=== PATIENT | male | born 1950 | race Caucasian/White ===

== ENCOUNTER 2020-03-04 14:50 | Outpatient (RCR) | payer MEDICARE, OTHER, SELFPAY | END 2020-03-04 23:59 | disposition home or self-care (01) | LOC: ANHAUDIO 14:50 | DX: Z46.1 Encounter for fitting and adjustment of hearing aid (principal) | CPT/HCPCS: 92593 ==

== ENCOUNTER 2020-06-17 12:52 | Outpatient (CLI) | payer MEDICARE, OTHER, SELFPAY | END 2020-06-17 12:53 | disposition home or self-care (01) | LOC: ANHAUDIO 12:53 | PROVIDERS: Visit Provider Otolaryngology | DX: H90.3 Sensorineural hearing loss, bilateral (principal) | CPT/HCPCS: 92557; 92567 ==

== ENCOUNTER 2020-07-06 09:25 | Outpatient (RCR) | payer SELFPAY | END 2020-07-06 23:59 | disposition home or self-care (01) | LOC: ANHAUDIO 09:25 | DX: Z46.1 Encounter for fitting and adjustment of hearing aid (principal) | CPT/HCPCS: V5261 ==

== ENCOUNTER 2020-10-20 09:29 | Outpatient (RCR) | payer SELFPAY | END 2020-10-20 23:59 | disposition home or self-care (01) | LOC: ANHAUDIO 09:29 | DX: Z46.1 Encounter for fitting and adjustment of hearing aid (principal) | CPT/HCPCS: 99199 ==

== ENCOUNTER 2022-06-20 17:01 | Emergency (ER) | payer MEDICARE, OTHER, SELFPAY | END 2022-06-20 17:10 | disposition left against medical advice (07) | DX: Z53.21 Procedure and treatment not carried out due to patient leaving prior to being seen by health care provider (principal) | CPT/HCPCS: 99199 ==

== ENCOUNTER 2025-04-06 14:05 | Inpatient (IN) | payer MEDICARE, SELFPAY ==
[2025-04-06] VITALS (12 sets, daily range): BP systolic 116–150; BP diastolic 68–99; PULSE 70–99; RESP 16–22; TEMP 36.5–36.7; O2SAT 97–99; BMI 30.7
--- NOTE | ~2025-04-06 | XR_ITS ---
EXAMINATION: XR chest 2V, 04/06/2025 14:45 CDT HISTORY: cp, hx of COPD COMPARISON: No comparisons available. Technique: 2 views obtained. Findings: The lungs are clear, no effusion. No pneumothorax. Heart is normal size. Mediastinal and hilar contours are within normal limits. Poststernotomy Impression: No acute cardiopulmonary abnormality. Reviewed, dictated and finalized at location P. Impression: No acute cardiopulmonary abnormality.
--- NOTE | 2025-04-06 14:10 | ECG_ITS ---
Test Date: 2025-04-06 14:11:42 Measurements Intervals [place] Rate: 98 P: 0 [place]: 0 QRS: -43 QRSD: 101 T: 45 QT: 342 QTc: 438 Interpretive Statements ATRIAL FLUTTER/TACHYCARDIA WITH NORMAL VENTRICULAR RESPONSE LEFT AXIS DEVIATION PATTERN CONSISTENT WITH PULMONARY DISEASE INCOMPLETE RIGHT BUNDLE BRANCH BLOCK BASELINE ARTIFACT- I, II, AVR, AVL, AVF ABNORMAL ECG No previous ECG available for comparison Electronically Signed On 04-06-2025 16:47:47 CDT by Juanito Roa D.O.
[2025-04-06 14:24] LABS: Hematocrit 47.2 % (42.0-52.0); Hemoglobin 14.7 g/dL (14.0-18.0); Immature Granulocyte Percent A 0.4 % (0-0.5); Lymphocytes Absolute Auto 1.25 K/mm3 (0.9-3.2); Mean Corpuscular HGB Conc 31.1 g/dl (32-36); Mean Corpuscular Hemoglobin 28.1 pg (26-34); Mean Corpuscular Volume 90.2 fl (80-100); Nucleated Red Blood Cells Absolute Auto 0.000 K/mm3 (0.0-0.012); Nucleated Red Blood Cells Perc 0.0 % (0.0-0.2); Platelet Count Result 195 k/mm3 (150-375); Red Blood Count 5.23 M/mm3 (4.6-6.20); White Blood Count 8.5 K/mm3 (4.5-10.0)
[2025-04-06 14:38] LABS: INR 1.1; Prothrombin Time 14.7 Seconds (11.1-14.7)
[2025-04-06 14:39] LABS: Partial Thromboplastin Time 34.8 Seconds (22.3-36.8)
[2025-04-06 14:41] LABS: Alanine Aminotransferase 40 U/L (6-50); Albumin Level 4.0 g/dL (3.5-5.1); Alkaline Phosphatase 130 U/L (38-126); Anion Gap 7 mmol/L (4-12); Aspartate Amino Transferase 36 U/L (17-59); Bilirubin,Total 0.6 mg/dL (0.2-1.3); Blood Urea Nitrogen 19 mg/dL (9-20); Calcium 9.3 mg/dL (8.4-10.2); Carbon Dioxide 29 mmol/L (22-30); Chloride 102 mmol/L (98-107); Estimated CRCL calculation 67 ml/min; Estimated Glomerular Filt Rate > 60; Glucose 181 mg/dL (65-110); Lipase 41 U/L (23-300); Potassium 4.6 mmol/L (3.4-5.0); Sodium 138 mmol/L (137-145); Total Protein 6.9 g/dL (6.3-8.2)
[2025-04-06 14:48] LABS: Troponin I 0.012 ng/mL (0.000-0.034)
--- NOTE | 2025-04-06 17:32 | ED.GENADULT ---
HPI - General Adult General Chief complaint: Chest Pain Stated complaint: cp Time Seen by Provider: 04/06/25 15:23 History of Present Illness HPI narrative: Patient 74-year-old gentleman who presents emergency department chief complaint of chest pain. Patient reports he had a bypass 20 years ago and reports that today started having pain over his middle portion of his chest radiating to his left shoulder the patient reports nausea with this patient reports he took 4 baby aspirin but vomited immediately afterwards EMS was called and was transported the emergency department the patient states his pain has resolved at this point Related Data Home Medications ?Medication ?Instructions ?Recorded ?Confirmed ?Last Taken ?Type aspirin 81 mg tablet,delayed 81 mg PO DAILY 06/10/20 Unknown History release benazepril 10 mg tablet 10 mg PO DAILY 06/10/20 Unknown History metformin 500 mg tablet 1,000 mg PO BID 06/10/20 Unknown History metoprolol tartrate 50 mg tablet 50 mg PO Q12H 06/10/20 Unknown History rosuvastatin 40 mg tablet 40 mg PO DAILY 06/10/20 Unknown History Allergies Allergy/AdvReac Type Severity Reaction Status Date / Time No Known Allergies Allergy Verified 06/10/20 09:27 Review of Systems Review of Systems: A 10 system review of systems was completed on the patient and is negative except for what is stated in the HPI. Nursing and ancillary documentation was reviewed. [facility] Social History Social History Smoking status: Never smoker Alcohol intake: never Substance use: never Exam Narrative: GENERAL: Well-appearing, well-nourished, and in no acute distress. HEAD: Normocephalic, atraumatic. EYES: PERRLA and EOMI. ENT: Nares clear, no rhinorrhea or epistaxis. Mucous membranes moist. NECK: Supple. CHEST: Clear to auscultation. No respiratory distress. HEART: Regular rate and rhythm. No murmur heard. Normal peripheral pulses. ABDOMEN: Soft, nontender, nondistended, normal active bowel sounds. EXTREMITIES: Normal range of motion. No edema. SKIN: Warm, dry, no rash. NEURO: No focal deficits. Alert and oriented x3. PSYCH: Normal mood and affect. Course Vital Signs Vital signs: Vital Signs Pulse Rate 93 04/06/25 14:08 Respiratory Rate 22 H 04/06/25 14:08 Blood Pressure 150/75 H 04/06/25 14:08 Pulse Oximetry 99 04/06/25 14:08 Oxygen Flow Rate 3 04/06/25 14:08 Temperature 36.7 C 04/06/25 14:24 Pulse Rate 89 04/06/25 17:59 Respiratory Rate 18 04/06/25 17:59 Blood Pressure 116/68 04/06/25 17:59 Pulse Oximetry 99 04/06/25 17:59 Oxygen Delivery Nasal Cannula 04/06/25 14:23 Oxygen Flow Rate 3 04/06/25 14:23 Medical Decision Making MDM Narrative Medical decision making narrative: Differential diagnosis includes ACS, atypical chest pain, pancreatitis, pneumothorax, Chest x-ray showed no focal infiltrate or pneumothorax or wide mediastinum Initial troponin was negative EKG showed no acute ischemic changes 3 hour repeat troponin increased Vital Signs Vital Signs: Vital Signs Pulse Rate 93 04/06/25 14:08 Respiratory Rate 22 H 04/06/25 14:08 Blood Pressure 150/75 H 04/06/25 14:08 Pulse Oximetry 99 04/06/25 14:08 Oxygen Flow Rate 3 04/06/25 14:08 Temperature 36.7 C 04/06/25 14:24 Pulse Rate 89 04/06/25 17:59 Respiratory Rate 18 04/06/25 17:59 Blood Pressure 116/68 04/06/25 17:59 Pulse Oximetry 99 04/06/25 17:59 Oxygen Delivery Nasal Cannula 04/06/25 14:23 Oxygen Flow Rate 3 04/06/25 14:23 Lab Data 04/06/25 14:16 04/06/25 14:16 Labs: Lab Results 04/06/25 04/06/25 04/06/25 Range/Units 14:13 14:16 17:41 WBC 8.5 (4.5-10.0) K/mm3 RBC 5.23 (4.6-6.20) M/mm3 Hgb 14.7 (14.0-18.0) g/dL Hct 47.2 (42.0-52.0) % MCV 90.2 (80-100) fl MCH 28.1 (26-34) pg MCHC 31.1 L (32-36) g/dl RDW 15.5 H (11.5-14.5) % Plt Count 195 (150-375) k/mm3 MPV 9.3 (7.4-10.4) fl Immature Gran % (Auto) 0.4 (0-0.5) % Neut % (Auto) 73.2 H (45.5-73.1) % Lymph % (Auto) 14.7 L (18.3-44.2) % [place] % (Auto) 9.5 H (2.6-8.5) % Eos % (Auto) 1.5 (0-4.4) % Baso % (Auto) 0.7 (0.2-1.2) % Lymph # (Auto) 1.25 (0.9-3.2) K/mm3 [place] # (Auto) 0.8 H (0.1-0.6) K/mm3 Eos # (Auto) 0.1 (0-0.3) K/mm3 Baso # (Auto) 0.1 (0.0-0.1) K/mm3 Abs Immat Gran (auto) 0.03 (0.00-0.031) K/mm3 Absolute Neuts (auto) 6.2 (1.3-6.7) K/mm3 Absolute Nucleated RBC 0.000 (0.0-0.012) K/mm3 Nucleated RBC % 0.0 (0.0-0.2) % PT 14.7 (11.1-14.7) Seconds INR 1.1 APTT 34.8 (22.3-36.8) Seconds Sodium 138 (137-145) mmol/L Potassium 4.6 (3.4-5.0) mmol/L Chloride 102 (98-107) mmol/L Carbon Dioxide 29 (22-30) mmol/L Anion Gap 7 (4-12) mmol/L BUN 19 (9-20) mg/dL Creatinine 0.88 (0.7-1.3) mg/dL Estim Creat Clear Calc 67 ml/min Estimated GFR > 60 (59 - ) Glucose 181 H (65-110) mg/dL POC Capillary Glucose 203 H (65-105) mg/dl Calcium 9.3 (8.4-10.2) mg/dL Total Bilirubin 0.6 (0.2-1.3) mg/dL AST 36 (17-59) U/L ALT 40 (6-50) U/L Alkaline Phosphatase 130 H (38-126) U/L Troponin I 0.012 Pending (0.000-0.034) ng/mL Total Protein 6.9 (6.3-8.2) g/dL Albumin 4.0 (3.5-5.1) g/dL Lipase 41 (23-300) U/L 04/06/25 Range/Units 17:56 WBC (4.5-10.0) K/mm3 RBC (4.6-6.20) M/mm3 Hgb (14.0-18.0) g/dL Hct (42.0-52.0) % MCV (80-100) fl MCH (26-34) pg MCHC (32-36) g/dl RDW (11.5-14.5) % Plt Count (150-375) k/mm3 MPV (7.4-10.4) fl Immature Gran % (Auto) (0-0.5) % Neut % (Auto) (45.5-73.1) % Lymph % (Auto) (18.3-44.2) % [place] % (Auto) (2.6-8.5) % Eos % (Auto) (0-4.4) % Baso % (Auto) (0.2-1.2) % Lymph # (Auto) (0.9-3.2) K/mm3 [place] # (Auto) (0.1-0.6) K/mm3 Eos # (Auto) (0-0.3) K/mm3 Baso # (Auto) (0.0-0.1) K/mm3 Abs Immat Gran (auto) (0.00-0.031) K/mm3 Absolute Neuts (auto) (1.3-6.7) K/mm3 Absolute Nucleated RBC (0.0-0.012) K/mm3 Nucleated RBC % (0.0-0.2) % PT (11.1-14.7) Seconds INR APTT (22.3-36.8) Seconds Sodium (137-145) mmol/L Potassium (3.4-5.0) mmol/L Chloride (98-107) mmol/L Carbon Dioxide (22-30) mmol/L Anion Gap (4-12) mmol/L BUN (9-20) mg/dL Creatinine (0.7-1.3) mg/dL Estim Creat Clear Calc ml/min Estimated GFR (59 - ) Glucose (65-110) mg/dL POC Capillary Glucose 65 (65-105) mg/dl Calcium (8.4-10.2) mg/dL Total Bilirubin (0.2-1.3) mg/dL AST (17-59) U/L ALT (6-50) U/L Alkaline Phosphatase (38-126) U/L Troponin I (0.000-0.034) ng/mL Total Protein (6.3-8.2) g/dL Albumin (3.5-5.1) g/dL Lipase (23-300) U/L Discharge Plan Discharge Clinical Impression: Chest pain, Elevated troponin Patient Disposition: Still a Patient Condition: Stable Patient Language: Slovenian Prescriptions: No Action metformin 500 mg tablet 1,000 mg PO BID metoprolol tartrate 50 mg tablet 50 mg PO Q12H rosuvastatin 40 mg tablet 40 mg PO DAILY benazepril 10 mg tablet 10 mg PO DAILY aspirin 81 mg tablet,delayed release (DR/EC) 81 mg PO DAILY Follow-up/Referrals: UNKNOWN,DOCTOR [Primary Care Provider] Time of Disposition: 18:17
--- NOTE | 2025-04-06 17:42 | ECG_ITS ---
Test Date: 2025-04-06 17:49:32 Measurements Intervals [place] Rate: 80 P: -20 [place]: 220 QRS: 0 QRSD: 118 T: 30 QT: 360 QTc: 415 Interpretive Statements ATRIAL FLUTTER/TACHYCARDIA WITH NORMAL VENTRICULAR RESPONSE INCOMPLETE RIGHT BUNDLE BRANCH BLOCK PATTERN CONSISTENT WITH PULMONARY DISEASE ABNORMAL ECG Compared to ECG 04/06/2025 14:11:42 NO SIGNIFICANT CHANGE Electronically Signed On 04-06-2025 19:59:02 CDT by Juanito Roa D.O.
--- NOTE | 2025-04-06 18:01 | PC.NURSE ---
Juice pb and crackers provided r/t bs 65
[2025-04-06 18:13] LABS: Troponin I 0.084 ng/mL (0.000-0.034)
--- NOTE | 2025-04-06 18:18 | PM.IMHP ---
H&P: HPI History of Present Illness Date/Time: 04/06/25 18:18 Chief Complaint: Chest pain Narrative: 74 year old male with a PMH of DMII, DORENE wtih cpap, Alz dementia, COPD, HTN, CABG x4 presented to the ED on 04/06/25 with complaints of sudden crushing chest pain located over the middle of his chest and radiating to his left shoulder. Family was instructed to give 4 baby aspirin but patient immediately vomited after administration. Symptoms had resolved before arrival to the ED. patient is A&O x2 on my assessment. Family mentions the patient complained of shortness of breath as well. Patient does have history of CABG x4. ED course: Labs reviewed elevated glucose, alk-phos 130, initial troponin 0.012 and 3 hour troponin 0.084. EKG with no evidence ischemic changes Chest x-ray with no acute cardiopulmonary abnormality Review of Systems Review of Systems: All systems reviewed & are unremarkable except as noted in HPI and below PMFSH Past Medical History Medical History (Updated 04/07/25 @ 01:11 by Yesenia Ronquillo APRN) COPD (chronic obstructive pulmonary disease) DMII (diabetes mellitus, type 2) DORENE (obstructive sleep apnea) Alzheimer's dementia Family History Family History Mother Alzheimer disease Father Alzheimer disease Diabetes mellitus Sibling History of kidney problems Social History Social History Smoking status: Never smoker Alcohol intake: never Substance use: never Meds Home Medications and Allergies Home Medications ?Medication ?Instructions ?Recorded ?Confirmed ?Type aspirin 81 mg tablet,delayed 81 mg PO DAILY 06/10/20 04/06/25 History release rosuvastatin 40 mg tablet 40 mg PO DAILY 06/10/20 04/06/25 History albuterol sulfate 0.63 mg/3 mL 0.63 mg inhalation Q6H 04/06/25 04/06/25 History solution for nebulization albuterol sulfate 90 mcg/actuation 2 inh inhalation Q4-6H PRN 04/06/25 04/06/25 History aerosol inhaler (Ventolin HFA) shortness of breath or wheezing apixaban 5 mg tablet (Eliquis) 5 mg PO Q12H 04/06/25 04/06/25 History benazepril 5 mg tablet 5 mg PO DAILY 04/06/25 04/06/25 History blood sugar diagnostic (FreeStyle 04/06/25 04/06/25 History Lite Strips) blood-glucose meter (FreeStyle 04/06/25 04/06/25 History Lite Meter kit) [id number] 1 drp EACH EYE DAILY PRN dry eye(s) 04/06/25 04/06/25 History 80 0.5 %-1 %-0.5 % eye drops (Refresh Optive Advanced) cholecalciferol (vitamin D3) 50 2,000 unit PO BID 04/06/25 04/06/25 History mcg (2,000 unit) capsule clindamycin HCl 300 mg capsule 600 mg PO PRN 04/06/25 04/06/25 History cyanocobalamin (vitamin B-12) 1,000 mcg subcut MONTHLY 04/06/25 04/06/25 History 1,000 mcg/mL injection solution cyclosporine 0.05 % eye drops in a 1 drp EACH EYE BID 04/06/25 04/06/25 History dropperette (Restasis) ferrous sulfate 325 mg (65 mg 325 mg PO DAILY 04/06/25 04/06/25 History iron) tablet (iron) fluticasone fur. 200 mcg-umeclid 1 inh inhalation DAILY 04/06/25 04/06/25 History 62.5 mcg-vilant 25 mcg inhalat.powder (Trelegy Ellipta) insulin NPH isoph U-100 human 100 30 unit subcut BID 04/06/25 04/06/25 History unit/mL subcutaneous suspension (Humulin N NPH U-100 Insulin (isophane susp)) insulin regular human 100 unit/mL 14 unit subcut TID 04/06/25 04/06/25 History injection solution (Humulin R Regular U-100 Insulin) insulin syringe-needle U-100 0.5 04/06/25 04/06/25 History mL 31 gauge x 5/16 (Ultra-Fine Insulin Syringe) metoprolol succinate 25 mg 25 mg PO DAILY 04/06/25 04/06/25 History tablet,extended release 24 hr multivitamin (Daily Multi-Vitamin 1 tablet PO DAILY 04/06/25 04/06/25 History tablet) tamsulosin 0.4 mg capsule 0.4 mg PO DAILY 04/06/25 04/06/25 History vit C 250 mg-vit E 90 mg-zinc 40 1 tablet PO BID 04/06/25 04/06/25 History mg-copper 1 [id number]-uqanxd capsule (PreserVision AREDS-2) Allergies Allergy/AdvReac Type Severity Reaction Status Date / Time Penicillins Allergy Unknown Rash Verified 04/06/25 20:10 Vital Signs Vital Signs - 24 hr 04/06/25 14:08 04/06/25 14:15 04/06/25 14:23 Temperature Pulse Rate 93 99 Respiratory Rate 22 H Blood Pressure 150/75 H Pulse Oximetry 99 98 Oxygen Delivery Nasal Cannula Oxygen Flow Rate 3 3 04/06/25 14:24 04/06/25 15:48 04/06/25 17:51 Temperature 98.0 F Pulse Rate 96 93 Respiratory Rate 18 18 Blood Pressure 120/70 116/68 Pulse Oximetry 97 98 99 Oxygen Delivery Oxygen Flow Rate 04/06/25 17:59 Temperature Pulse Rate 89 Respiratory Rate 18 Blood Pressure 116/68 Pulse Oximetry 99 Oxygen Delivery Oxygen Flow Rate Exam Narrative: GENERAL: non-toxic appearing, in no acute distress. HEAD: Normocephalic, atraumatic. EYES: PERRLA. Conjunctivae clear. NOSE: Normal no drainage. THROAT: Pharynx clear, no exudate. NECK: Trachea midline. No adenopathy, no masses. RESPIRATORY: Airway patent, respirations nonlabored. CTA. CARDIOVASCULAR: Regular rate and rhythm. BREASTS: Defer GASTROINTESTINAL: Abdomen is soft and nontender. No organomegaly. Bowel sounds normal in all quadrants. Obese GENITOURINARY: Defer MUSCULOSKELETAL: Moves all extremities. No gross deformities. Moves all extremities well. No calf tenderness. SKIN: Warm, dry, normal color. NEURO: A&O X2 but able to correct answers if given time or reminders. Speech clear PSYCHIATRIC: Normal interaction H&P: Results Labs Labs: Short CBC 04/06/25 Range/Units 14:16 WBC 8.5 (4.5-10.0) K/mm3 Hgb 14.7 (14.0-18.0) g/dL Hct 47.2 (42.0-52.0) % Plt Count 195 (150-375) k/mm3 [facility] 04/06/25 14:16 Sodium 138 Potassium 4.6 Chloride 102 Carbon Dioxide 29 BUN 19 Creatinine 0.88 Glucose 181 H Calcium 9.3 Cardiac Enzymes 04/06/25 04/06/25 Range/Units 14:16 17:41 Troponin I 0.012 0.084 H* D (0.000-0.034) ng/mL Liver Function 04/06/25 Range/Units 14:16 Total Bilirubin 0.6 (0.2-1.3) mg/dL AST 36 (17-59) U/L ALT 40 (6-50) U/L Alkaline Phosphatase 130 H (38-126) U/L Albumin 4.0 (3.5-5.1) g/dL Assessment and Plan Assessment and plan (1) Chest pain: Qualifiers: Chest pain type: unspecified Qualified Code(s): R07.9 - Chest pain, unspecified Code(s): R07.9 - Chest pain, unspecified Status: Acute Assessment and Plan: complaints of sudden crushing chest pain located over the middle of his chest and radiating to his left shoulder. History of CABG x4. Takes Eliquis and aspirin 81 mg. EKG with no evidence of ischemic event. Initial troponin 0.012 and increased to 0.84. Await 6hr trop -concern for NSTEMI -heparin drip per protocol started -cardiology consult -NPO at MI should cardiology want to take to director of cardiac cath lab -continue beta-scott -continue statin -sublingual nitro p.r.n. -lipid panel ordered (2) Alzheimer's dementia: Qualifiers: Alzheimer's disease onset: early onset Dementia behavioral or psychological symptom: without behavioral, psychotic, or mood disturbance or anxiety Dementia severity: unspecified severity Qualified Code(s): G30.0 - Alzheimer's disease with early onset; F02.80 - Dementia in other diseases classified elsewhere, unspecified severity, without behavioral disturbance, psychotic disturbance, mood disturbance, and anxiety Code(s): G30.9 - Alzheimer's disease, unspecified; F02.80 - Dementia in other diseases classified elsewhere, unspecified severity, without behavioral disturbance, psychotic disturbance, mood disturbance, and anxiety Status: Acute Assessment and Plan: Per family, patient unable to tolerate Aricept due to drowsiness. Patient has had no mood disturbances behavioral disturbances. -continue to monitor for symptoms of agitation -fall precautions (3) DORENE (obstructive sleep apnea): Code(s): G47.33 - Obstructive sleep apnea (adult) (pediatric) Status: Chronic Assessment and Plan: CPAP for all sleep using home settings (4) DMII (diabetes mellitus, type 2): Qualifiers: Diabetes mellitus complication status: with other specified complication Diabetes mellitus intermediate insulin use: with intermediate use Qualified Code(s): E11.69 - Type 2 diabetes mellitus with other specified complication; Z79.4 - termite renewal inspector (current) use of insulin Code(s): E11.9 - Type 2 diabetes mellitus without complications Status: Acute Assessment and Plan: - hypoglycemia protocol - POC blood glucose ACHS - home medication: NPH 30 units b.i.d., regular insulin 14 get TID - correct regimen ordered: high corrective scale (5) COPD (chronic obstructive pulmonary disease): Qualifiers: COPD type: unspecified COPD Qualified Code(s): J44.9 - Chronic obstructive pulmonary disease, unspecified Code(s): J44.9 - Chronic obstructive pulmonary disease, unspecified Status: Chronic Assessment and Plan: Not in acute acute exacerbation -albuterol sulfate q.6 p.r.n. -trilogy daily Plan Diet: Heart healthy. In the other night GI prophylaxis: NA DVT prophylaxis: heparin drip lines/drains: PIV Fluids: none Code status: Full code Quality VTE Prophylaxis VTE prophylaxis: pharmacologic ordered (Heparin drip) Hospitalist [facility] Advance Care Plan I have confirmed that the patient's Advanced Care Plan is present, code status is documented, or surrogate decision maker is listed in patient medical record.: Yes Medication Reconciliation I have utilized all available resources to obtain, update and review the patients current medications (includes all prescriptions, OTC, herbals, cannabis, and nutritional supplements).: Yes
[2025-04-06 19:14] LABS: INR 1.1; Prothrombin Time 14.3 Seconds (11.1-14.7)
[2025-04-06 19:15] LABS: Partial Thromboplastin Time 34.0 Seconds (22.3-36.8)
--- NOTE | 2025-04-06 20:00 | ADMGEN ---
This patient, Fabio Kang, was admitted to IMU Room 212-01 on 04/06/25 at 1953. Patient/family oriented to hospital policies and general routines including ID bracelet, bed and alarms, visiting hours, pain management, procedures, bathroom and other care routines, personal items, smoking policy, room service/diet, and visiting hours. Information on how to activate the Rapid Response Team has been discussed. Patient/Family are encouraged to report perceived risks to care and to ask questions if they do not understand what they are told or what they should do.
[2025-04-06] MEDS: HEPARIN SOD/D5W 100 UNITS/ML 25,000 UNITS/250 ML BAG 9 UNITS IV CONT (21:49)
[2025-04-06 22:34] LABS: Hematocrit 43.9 % (42.0-52.0); Hemoglobin 13.7 g/dL (14.0-18.0); Immature Granulocyte Percent A 0.3 % (0-0.5); Lymphocytes Absolute Auto 0.91 K/mm3 (0.9-3.2); Mean Corpuscular HGB Conc 31.2 g/dl (32-36); Mean Corpuscular Hemoglobin 28.2 pg (26-34); Mean Corpuscular Volume 90.3 fl (80-100); Nucleated Red Blood Cells Absolute Auto 0.000 K/mm3 (0.0-0.012); Nucleated Red Blood Cells Perc 0.0 % (0.0-0.2); Platelet Count Result 182 k/mm3 (150-375); Red Blood Count 4.86 M/mm3 (4.6-6.20); White Blood Count 8.8 K/mm3 (4.5-10.0)
[2025-04-06 23:00] LABS: Troponin I 0.244 ng/mL (0.000-0.034)
[2025-04-06] MEDS: cycloSPORINE 0.4 ML OPHTH SOLUTION 1 DROP EACH EYE (23:58)
[2025-04-06] MEDS: CHOLECALCIFEROL (VITAMIN D3) 25 MCG (1,000 UNITS) TABLET 50 MCG PO (23:58)
[2025-04-07] VITALS (17 sets, daily range): BP systolic 122–152; BP diastolic 52–74; PULSE 50–78; RESP 14–20; TEMP 36.6–37.1; O2SAT 97–98
--- NOTE | 2025-04-07 | ECHO_ITS ---
Patient Info Name: Fabio Kang Age: 74 years : 1950 Gender: Male Ht: 67 in Wt: 195 lbs BSA: 2.07 m2 HR: 69 bpm BP: 124 / 72 mmHg Technical Quality: Fair Exam Date: 04/07/2025 2:51 PM Patient Status: I Admit Date: 04/06/2025 Exam Type: CA echo doppler color flow Complete two-dimensional, color flow and Doppler transthoracic echocardiogram is performed. Staff Referring Physician: Uday Krishna MD Treasury Consultant: Jonnathan Hamm III Attending Provider: Celestina Tejada MD Summary 1. Complete two-dimensional, color flow and Doppler transthoracic echocardiogram is performed. 2. The left ventricle is normal in size and systolic function. The left ventricular ejection fraction is visually estimated to be 60-65%. 3. The right ventricle is normal in size and systolic function. 4. The aortic valve is trileaflet and calcified. There is likely mild aortic stenosis. There is no aortic regurgitation. Left Ventricle The left ventricle is normal in size and systolic function. The left ventricular ejection fraction is visually estimated to be 60-65%. Right Ventricle The right ventricle is normal in size and systolic function. Left Atria The left atrium is normal size. Right Atria The right atrium is normal size. Atrial Septum The atrial septum is not well visualized. Aortic Valve The aortic valve is trileaflet and calcified. There is likely mild aortic stenosis. There is no aortic regurgitation. Pulmonic Valve The pulmonic valve is not well visualized. Mitral Valve The mitral valve leaflets are thickened. There is no mitral stenosis. There is trace mitral regurgitation. Tricuspid Valve The tricuspid valve is not well visualized. There is no significant tricuspid regurgitation. Pericardium/Pleural Pericardium is normal in appearance with no evidence for significant pericardial effusion. Inferior Vena Cava Inferior vena cava is not well visualized. Aorta The aortic root at the level of the sinus of Valsalva measures 3.1 cm in diameter. Left Ventricular Outflow Tract Name Value Normal LVOT 2D LVOT Diameter 2.3 cm LVOT Doppler LVOT Peak Velocity 85 cm/s LVOT Peak Gradient 3 mmHg LVOT Mean Gradient 2 mmHg LVOT VTI 19 cm LVOT VTI/AV VTI Ratio 0.7 LVOT Stroke Volume 81 ml LVOT CO 5.1 l/min LVOT CI 2.4 l/min/m2 Pulmonic Valve Name Value Normal PV Doppler PV Peak Velocity 96 cm/s PV Peak Gradient 4 mmHg PV Mean Gradient 2 mmHg Mitral Valve Name Value Normal MV Doppler MV Peak Gradient 3 mmHg MV Mean Gradient 1 mmHg MV Area (Cont Eq VTI) 3.4 cm2 MV Diastolic Function MV E Peak Velocity 102 cm/s MV A Peak Velocity 90 cm/s MV E/A 1.1 MV Decel Time (PW) 168 ms MV Annular TDI MV E/e' (Septal) 16.6 MV E/e' (Lateral) 12.0 MV E/e' (Average) 14.3 Tricuspid Valve Name Value Normal TV Annular TDI TV Lateral [place] s' Velocity 9.9 cm/s >=9.5 Aortic Valve Name Value Normal AV Doppler AV Peak Velocity 136 cm/s AV Peak Gradient 7 mmHg AV Mean Gradient 4 mmHg AV VTI 28 cm AV Area (Cont Eq VTI) 2.9 cm2 >=3.0 AV Area (Cont Eq Fred) 2.7 cm2 AV DI (Fred) 0.63 AV Regurgitation 2D LVOT Area 4.3 cm2 Ventricles Name Value Normal LV Dimensions 2D/MM IVS Diastolic Thickness (2D) 1.1 cm 0.6-1.0 LVID Diastole (2D) 5.0 cm 4.2-5.8 LVIW Diastolic Thickness (2D) 1.1 cm 0.6-1.0 LVID Systole (2D) 3.4 cm 2.5-4.0 LVOT Diameter 2.3 cm LV Mass (2D Cubed) 204.87 g 88.00-224.00 LV Mass Index (2D Cubed) 99 g/m2 49-115 Relative Wall Thickness (2D) 0.43 <=0.42 LV Fractional Shortening/Ejection Fraction 2D/MM LV Fractional Shortening (2D) 33 % 25-43 LV EF (2D Teichholz) 62 % LV Diastolic Volume (4C MOD) 119 ml LV EF (4C MOD) 67 % LV Diastolic Volume (2C MOD) 94 ml LV EF (2C MOD) 62 % LV Diastolic Volume (BP MOD) 106 ml 62-150 LV Diastolic Volume Index (BP MOD) 51 ml/m2 34-74 LV Systolic Volume (BP MOD) 38 ml 21-61 LV Systolic Volume Index (BP MOD) 18 ml/m2 11-31 LV EF (BP MOD) 64 % 52-72 LV Diastolic Length (4C) 7.8 cm LV Systolic Length (4C) 6.8 cm LV Stroke Volume (4C MOD) 79 ml Atria Name Value Normal LA Dimensions LA Volume (4C A-L) 56 ml LA Volume (BP A-L) 58 ml RA Dimensions RA Systolic Major [place] Length (4C) 6.1 cm 2.1-2.7 RA Area (4C) 22.4 cm2 <=18.0 Report Signatures
[2025-04-07 04:53] LABS: Hematocrit 47.5 % (42.0-52.0); Hemoglobin 14.3 g/dL (14.0-18.0); Immature Granulocyte Percent A 0.5 % (0-0.5); Lymphocytes Absolute Auto 0.77 K/mm3 (0.9-3.2); Mean Corpuscular HGB Conc 30.1 g/dl (32-36); Mean Corpuscular Hemoglobin 27.9 pg (26-34); Mean Corpuscular Volume 92.6 fl (80-100); Nucleated Red Blood Cells Absolute Auto 0.000 K/mm3 (0.0-0.012); Nucleated Red Blood Cells Perc 0.0 % (0.0-0.2); Platelet Count Result 165 k/mm3 (150-375); Red Blood Count 5.13 M/mm3 (4.6-6.20); White Blood Count 7.5 K/mm3 (4.5-10.0)
[2025-04-07 05:09] LABS: Partial Thromboplastin Time 99.0 Seconds (22.3-36.8)
[2025-04-07 05:13] LABS: Cholesterol 126 mg/dL (0-200); HDL Direct 45 mg/dL; Triglycerides 131 mg/dL (<150)
[2025-04-07] MEDS: FLUTICASONE/UMECLIDIN/VILANTER 200-62.5-25 MCG ELLIPTA 1 PUFF INHALATION (08:27)
--- NOTE | 2025-04-07 08:39 | PM.IMPN ---
Progress Note: A&P Assessment and Plan (1) Chest pain: Qualifiers: Chest pain type: unspecified Qualified Code(s): R07.9 - Chest pain, unspecified Code(s): R07.9 - Chest pain, unspecified Status: Acute Assessment and Plan: Complains of sudden crushing chest pain located over the middle of his chest and radiating to his left shoulder. History of CABG x4. Takes Eliquis and aspirin 81 mg. EKG with no evidence of ischemic event. Initial troponin 0.012 and increased to 0.84. Await 6hr trop concern for NSTEMI heparin drip per protocol started continue beta-scott continue statin sublingual nitro p.r.n. lipid panel ordered Heart cath tomorrow - NPO at midnight Echocardiogram today (2) Alzheimer's dementia: Qualifiers: Alzheimer's disease onset: early onset Dementia behavioral or psychological symptom: without behavioral, psychotic, or mood disturbance or anxiety Dementia severity: unspecified severity Qualified Code(s): G30.0 - Alzheimer's disease with early onset; F02.80 - Dementia in other diseases classified elsewhere, unspecified severity, without behavioral disturbance, psychotic disturbance, mood disturbance, and anxiety Code(s): G30.9 - Alzheimer's disease, unspecified; F02.80 - Dementia in other diseases classified elsewhere, unspecified severity, without behavioral disturbance, psychotic disturbance, mood disturbance, and anxiety Status: Acute Assessment and Plan: Per family, patient unable to tolerate Aricept due to drowsiness. Patient has had no mood disturbances behavioral disturbances. continue to monitor for symptoms of agitation fall precautions (3) DORENE (obstructive sleep apnea): Code(s): G47.33 - Obstructive sleep apnea (adult) (pediatric) Status: Chronic Assessment and Plan: CPAP for all sleep using home settings (4) DMII (diabetes mellitus, type 2): Qualifiers: Diabetes mellitus complication status: with other specified complication Diabetes mellitus correction insulin use: with terminal worker use Qualified Code(s): E11.69 - Type 2 diabetes mellitus with other specified complication; Z79.4 - [facility] (current) use of insulin Code(s): E11.9 - Type 2 diabetes mellitus without complications Status: Acute Assessment and Plan: hypoglycemia protocol POC blood glucose ACHS home medication: NPH 30 units b.i.d., regular insulin 14 get TID correct regimen ordered: high corrective scale Lantus 24 units HS (5) COPD (chronic obstructive pulmonary disease): Qualifiers: COPD type: unspecified COPD Qualified Code(s): J44.9 - Chronic obstructive pulmonary disease, unspecified Code(s): J44.9 - Chronic obstructive pulmonary disease, unspecified Status: Chronic Assessment and Plan: Not in acute acute exacerbation albuterol sulfate q.6 p.r.n. trilogy daily Plan Diet: Heart healthy. In the other night GI prophylaxis: NA DVT prophylaxis: heparin drip lines/drains: PIV Fluids: none Code status: Full code Subjective Date/time seen: 04/07/25 08:39 Interval history: 74 year old male with a PMH of DMII, DORENE wtih cpap, Alz dementia, COPD, HTN, CABG x4 presented to the ED on 04/06/25 with complaints of sudden crushing chest pain located over the middle of his chest and radiating to his left shoulder. 04/07/2025 This patient sitting comfortably in bed at time examination. Denies any chest pain, shortness of breath, nausea/vomiting or abdominal pain. Still has some left-sided back pain. Plan for echocardiogram today, heart cath tomorrow. NPO at midnight Review of Systems Review of Systems: All systems reviewed & are unremarkable except as noted in HPI and below Exam Narrative: GENERAL: non-toxic appearing, in no acute distress. HEAD: Normocephalic, atraumatic. EYES: PERRLA. Conjunctivae clear. NOSE: Normal no drainage. THROAT: Pharynx clear, no exudate. NECK: Trachea midline. No adenopathy, no masses. RESPIRATORY: Airway patent, respirations nonlabored. CTA. CARDIOVASCULAR: Regular rate and rhythm. BREASTS: Defer GASTROINTESTINAL: Abdomen is soft and nontender. No organomegaly. Bowel sounds normal in all quadrants. Obese GENITOURINARY: Defer MUSCULOSKELETAL: Moves all extremities. No gross deformities. Moves all extremities well. No calf tenderness. SKIN: Warm, dry, normal color. NEURO: A&O X2 but able to correct answers if given time or reminders. Speech clear PSYCHIATRIC: Normal interaction Objective Data Vital Signs Vital Signs: Vital Signs - 24 hr 04/06/25 14:08 04/06/25 14:15 04/06/25 14:23 Temperature Pulse Rate 93 99 Respiratory Rate 22 H Blood Pressure 150/75 H Pulse Oximetry 99 98 Oxygen Delivery Nasal Cannula Oxygen Flow Rate 3 3 04/06/25 14:24 04/06/25 15:48 04/06/25 17:51 Temperature 98.0 F Pulse Rate 96 93 Respiratory Rate 18 18 Blood Pressure 120/70 116/68 Pulse Oximetry 97 98 99 Oxygen Delivery Oxygen Flow Rate 04/06/25 17:59 04/06/25 19:58 04/06/25 20:00 Temperature 97.7 F Pulse Rate 89 77 72 Respiratory Rate 18 18 Blood Pressure 116/68 130/99 H Pulse Oximetry 99 99 Oxygen Delivery Oxygen Flow Rate 04/06/25 20:10 04/06/25 22:00 04/06/25 23:57 Temperature Pulse Rate 72 70 71 Respiratory Rate 18 16 Blood Pressure Pulse Oximetry 99 97 Oxygen Delivery Nasal Cannula CPAP Oxygen Flow Rate 2 04/07/25 00:00 04/07/25 00:00 04/07/25 02:00 Temperature 97.9 F Pulse Rate 71 78 75 Respiratory Rate 16 Blood Pressure 137/55 L Pulse Oximetry 97 Oxygen Delivery Oxygen Flow Rate 04/07/25 03:39 04/07/25 04:00 04/07/25 04:00 Temperature 98.0 F Pulse Rate 76 74 76 Respiratory Rate 14 14 Blood Pressure 134/54 L Pulse Oximetry 97 97 Oxygen Delivery Room Air Oxygen Flow Rate 04/07/25 06:00 Temperature Pulse Rate 70 Respiratory Rate Blood Pressure Pulse Oximetry Oxygen Delivery Oxygen Flow Rate Intake/Output Intake/Output: Intake & Output 04/04/25 04/05/25 04/06/25 04/07/25 23:59 23:59 23:59 23:59 Intake Total 1006.9 Output Total 300 450 Balance -300 556.9 Meds/Results Medications: Active Medications Generic Name Dose Route Start Last Admin Trade Name Freq PRN Reason Stop Dose Admin Albuterol 2.5 mg 04/06/25 22:06 Albuterol Sulfate Neb 2.5 Mg/3 Ml Inh INHALATION Q6HRT PRN Shortness Of Breath Or Wheezing Artificial Tears 1 drop 04/06/25 22:19 Artificial Tears Ophth Soln 15 Ml Bottle EACH EYE DAILY PRN Dry Eye(s) Aspirin 81 mg 04/07/25 09:00 Aspirin 81 Mg Enteric Tablet PO DAILY REDD Cyclosporine 1 drop 04/06/25 23:40 04/06/25 23:58 Cyclosporine 0.4 Ml Ophth Solution EACH EYE 1 drop Q12HR REDD Administration Dextrose 12.5 gm 04/06/25 22:08 Dextrose 50% 25 Gm/50 Ml Syringe IV PUSH PRN PRN Hypoglycemia Protocol Ferrous Sulfate 325 mg 04/07/25 09:00 Ferrous Sulfate 325 Mg Tablet PO DAILY REDD Fluticasone/Umeclidinium/Vilanterol 1 puff 04/07/25 09:00 04/07/25 08:27 Fluticasone/Umeclidin/Vilanter 200-62.5-25 Mcg Ellipta INHALATION 1 puff DAILY REDD Administration Glucagon 1 mg 04/06/25 22:08 Glucagon For Inj 1 Mg Vial IM PRN PRN Hypoglycemia Protocol Glucose 15 gm 04/06/25 22:08 Glucose Oral Gel 15 Gm Of Glucse In 37.5 Gm Tube PO PRN PRN Hypoglycemia Protocol Heparin Sodium (Porcine) 4,000 units 04/06/25 18:16 Heparin Sodium 5,000 Units/Ml Vial IV PUSH PRN PRN aPTT less than 55 seconds Heparin Sodium (Porcine) 3,000 units 04/06/25 18:16 Heparin Sodium 5,000 Units/Ml Vial IV PUSH PRN PRN aPTT 55 - 70 seconds Heparin Sodium/Dextrose 25,000 units in 250 mls @ 9 mls/hr 04/06/25 18:20 04/07/25 04:08 Heparin Sodium/D5w 100 Units/Ml IV CONT 900 units/hr .Q24H REDD 9 mls/hr Protocol Titration 900 UNITS/HR Dextrose 1,000 mls @ 100 mls/hr 04/06/25 22:08 Dextrose 5% 1,000 Ml IVPB PRN PRN Hypoglycemia Protocol Insulin Aspart 4 - 8 units 04/07/25 08:00 Insulin Aspart (*Bkc) 100 Units/Ml SUB-Q TIDWM [facility] Protocol Lisinopril 5 mg 04/07/25 09:00 Lisinopril 5 Mg Tablet PO DAILY [facility] Metoprolol Succinate 25 mg 04/07/25 09:00 Metoprolol Succinate Ext Rel 25 Mg Tabcr PO DAILY [facility] Multivitamins Therapeutic 1 tablet 04/07/25 08:00 Multivitamins Therapeutic Tab (*Bkc) PO DAILY@0800 [facility] Nitroglycerin 0.4 mg 04/06/25 18:17 Nitroglycerin Sl 0.4 Mg Tablet SUBLINGUAL Q5MIN PRN Chest Pain Ondansetron HCl 4 mg 04/06/25 18:17 Ondansetron Inj 4 Mg/2 Ml Vial IV PUSH Q4H PRN Nausea Rosuvastatin Calcium 40 mg 04/07/25 09:00 Rosuvastatin 20 Mg Tablet PO DAILY [facility] Tamsulosin HCl 0.4 mg 04/07/25 09:00 Tamsulosin Hcl 0.4 Mg Capsule PO DAILY [facility] Vitamin D 50 mcg 04/06/25 23:40 04/06/25 23:58 Cholecalciferol (Vitamin D3) 25 Mcg (1,000 Units) Tablet PO 50 mcg BID [facility] Administration Radiology Results: ITS Impressions Chest X-Ray 04/06/25 15:02 Impression: No acute cardiopulmonary abnormality. Labs Labs: Laboratory Results - last 24 hr 04/06/25 04/06/25 04/06/25 14:13 14:16 17:41 WBC 8.5 RBC 5.23 Hgb 14.7 Hct 47.2 MCV 90.2 MCH 28.1 MCHC 31.1 L RDW 15.5 H Plt Count 195 MPV 9.3 Immature Gran % (Auto) 0.4 Neut % (Auto) 73.2 H Lymph % (Auto) 14.7 L [place] % (Auto) 9.5 H Eos % (Auto) 1.5 Baso % (Auto) 0.7 Lymph # (Auto) 1.25 [place] # (Auto) 0.8 H Eos # (Auto) 0.1 Baso # (Auto) 0.1 Abs Immat Gran (auto) 0.03 Absolute Neuts (auto) 6.2 Absolute Nucleated RBC 0.000 Nucleated RBC % 0.0 PT 14.7 INR 1.1 APTT 34.8 Sodium 138 Potassium 4.6 Chloride 102 Carbon Dioxide 29 Anion Gap 7 BUN 19 Creatinine 0.88 Estim Creat Clear Calc 67 Estimated GFR > 60 Glucose 181 H POC Capillary Glucose 203 H Calcium 9.3 Total Bilirubin 0.6 AST 36 ALT 40 Alkaline Phosphatase 130 H Troponin I 0.012 0.084 H* D Total Protein 6.9 Albumin 4.0 Triglycerides Cholesterol LDL Cholesterol Direct HDL Direct Lipase 41 04/06/25 04/06/25 04/06/25 17:56 18:56 20:03 WBC RBC Hgb Hct MCV MCH MCHC RDW Plt Count MPV Immature Gran % (Auto) Neut % (Auto) Lymph % (Auto) [place] % (Auto) Eos % (Auto) Baso % (Auto) Lymph # (Auto) [place] # (Auto) Eos # (Auto) Baso # (Auto) Abs Immat Gran (auto) Absolute Neuts (auto) Absolute Nucleated RBC Nucleated RBC % PT 14.3 INR 1.1 APTT 34.0 Sodium Potassium Chloride Carbon Dioxide Anion Gap BUN Creatinine Estim Creat Clear Calc Estimated GFR Glucose POC Capillary Glucose 65 262 H Calcium Total Bilirubin AST ALT Alkaline Phosphatase Troponin I Total Protein Albumin Triglycerides Cholesterol LDL Cholesterol Direct HDL Direct Lipase 04/06/25 04/07/25 22:06 04:08 WBC 8.8 7.5 RBC 4.86 5.13 Hgb 13.7 L 14.3 Hct 43.9 47.5 MCV 90.3 92.6 MCH 28.2 27.9 MCHC 31.2 L 30.1 L RDW 15.6 H 15.7 H Plt Count 182 165 MPV 10.0 10.3 Immature Gran % (Auto) 0.3 0.5 Neut % (Auto) 78.8 H 76.9 H Lymph % (Auto) 10.4 L 10.3 L [place] % (Auto) 8.5 9.9 H Eos % (Auto) 1.5 1.9 Baso % (Auto) 0.5 0.5 Lymph # (Auto) 0.91 0.77 L [place] # (Auto) 0.8 H 0.7 H Eos # (Auto) 0.1 0.1 Baso # (Auto) 0.0 0.0 Abs Immat Gran (auto) 0.03 0.04 H Absolute Neuts (auto) 6.9 H 5.8 Absolute Nucleated RBC 0.000 0.000 Nucleated RBC % 0.0 0.0 PT INR APTT 99.0 H Sodium Potassium Chloride Carbon Dioxide Anion Gap BUN Creatinine Estim Creat Clear Calc Estimated GFR Glucose POC Capillary Glucose Calcium Total Bilirubin AST ALT Alkaline Phosphatase Troponin I 0.244 H* D Total Protein Albumin Triglycerides 131 Cholesterol 126 LDL Cholesterol Direct 55 HDL Direct 45 Lipase Quality VTE Prophylaxis VTE prophylaxis: pharmacologic ordered (Heparin drip)
[2025-04-07] MEDS: ASPIRIN 81 MG ENTERIC TABLET PO (08:50)
[2025-04-07] MEDS: ROSUVASTATIN 20 MG TABLET 40 MG PO (08:50)
[2025-04-07] MEDS: FERROUS SULFATE 325 MG TABLET PO (08:51)
[2025-04-07] MEDS: CHOLECALCIFEROL (VITAMIN D3) 25 MCG (1,000 UNITS) TABLET 50 MCG PO ×2 (08:51→16:51)
[2025-04-07] MEDS: cycloSPORINE 0.4 ML OPHTH SOLUTION 1 DROP EACH EYE ×2 (08:52→21:15)
[2025-04-07] MEDS: MULTIVITAMINS THERAPEUTIC TAB (*BKC) 1 TABLET PO (08:52)
[2025-04-07] MEDS: METOPROLOL SUCCINATE EXT REL 25 MG TABCR PO (09:04)
[2025-04-07] MEDS: TAMSULOSIN HCL 0.4 MG CAPSULE PO (09:04)
--- NOTE | 2025-04-07 09:52 | P.CONCA_ITS ---
Assessment and Plan Assessment and plan (1) Chest pain: Qualifiers: Chest pain type: unspecified Qualified Code(s): R07.9 - Chest pain, unspecified Code(s): R07.9 - Chest pain, unspecified Status: Acute Assessment and Plan: Somewhat atypical sounding chest pain that occurred during exertion but has been constant although less intense. Initial troponin 0.012 and has trended up to 0.244. He has been placed on a heparin drip which should be continued. SL nitro 0.4mg prn for chest pain. Trend troponin. Given his history, presentation, and troponin elevation, recommend ischemic evaluation with coronary angiogram tomorrow (last dose of eliquis 10/12 a.m.). NPO at midnight. Will check an echo in the meantime. If his repeat troponin is significantly increased from previous value or he develops worsening chest pain can consider more urgent cath. 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 (2) Elevated troponin: Code(s): R79.89 - Other specified abnormal findings of blood chemistry Status: Acute Assessment and Plan: Troponin is elevated at 0.084, 0.244 (initially 0.012). Repeat troponin now to observe trend. Will consider this NSTEMI and plan for coronary angiogram tomorrow. (3) COPD (chronic obstructive pulmonary disease): Qualifiers: COPD type: unspecified COPD Qualified Code(s): J44.9 - Chronic obstructive pulmonary disease, unspecified Code(s): J44.9 - Chronic obstructive pulmonary disease, unspecified Status: Chronic Assessment and Plan: Per hospitalist (4) DMII (diabetes mellitus, type 2): Qualifiers: Diabetes mellitus fci insulin use: with parts counterman use Diabetes mellitus complication status: with other specified complication Qualified Code(s): E11.69 - Type 2 diabetes mellitus with other specified complication; Z79.4 - senior care (current) use of insulin Code(s): E11.9 - Type 2 diabetes mellitus without complications Status: Acute Assessment and Plan: Per hospitalist History of Present Illness History of Present Illness Consult date/time: 04/07/25 09:52 Requesting physician: Uday Krishna MD Consult reason: chest pain Reason For Visit: Chest pain, Elevated troponin Narrative: Fabio Kang is a 74 year old male with coronary artery disease with reported history of multivessel bypass ~20 years ago at [facility]. This is a patient who presents to the hospital with a chief complaint of chest pain. He states he experienced difficulty breathing while walking his dog yesterday. His shortness of breath was associated with left upper chest and shoulder pain. He describes the pain as pressure. Given his cardiac history he made the decision to come to the emergency department for evaluation. He states he had continuous chest discomfort and shoulder pain for about 2 hours after arrival to the ED. Currently, he reports improvement in the discomfort but states it is still present but not as intense and just enough to notice it. He is lying comfortably in bed at the time of my evaluation and is not in any distress. Review of Systems 2 Review of Systems: All systems reviewed & are unremarkable except as noted in HPI and below PMFSH Past Medical History Medical History COPD (chronic obstructive pulmonary disease) DMII (diabetes mellitus, type 2) DORENE (obstructive sleep apnea) Alzheimer's dementia Family History Family History Mother Alzheimer disease Father Alzheimer disease Diabetes mellitus Sibling History of kidney problems Social History Social History Smoking status: Never smoker Second hand tobacco smoke exposure: No Alcohol intake: never Substance use: never Substance use type: does not use Lack of Transportation: No Lack of Food: Never True Current Housing: I Have Housing Concerned About Future Housing: No Difficulty Paying Gas/Electric Bills: No Difficulty Paying for Meds: No Currently Unemployed: No Education: High School Diploma/GED Difficulty w/ Childcare or Family Care: No Spiritual care concerns: No Meds Home Medications and Allergies Home Medications ?Medication ?Instructions ?Recorded ?Confirmed ?Type aspirin 81 mg tablet,delayed 81 mg PO DAILY 06/10/20 1 History release rosuvastatin 40 mg tablet 40 mg PO DAILY 06/10/2003/26 History albuterol sulfate 0.63 mg/3 mL 0.63 mg inhalation Q6H 04/06/25 04/06/25 History solution for nebulization albuterol sulfate 90 mcg/actuation 2 inh inhalation Q4 -6H PRN 04/06/25 04/06/25 History aerosol inhaler (Ventolin HFA) shortness of breath or wheezing apixaban 5 mg tablet (Eliquis) 5 mg PO Q12H 04/06/25 1 History benazepril 5 mg tablet 5 mg PO DAILY 04/06/2504/06 History blood sugar diagnostic (FreeStyle 04/06/25 04/06/25 H istory Lite Strips) blood-glucose meter (FreeStyle 04/06/25 04/06/25 Hist ory Lite Meter kit) [id number] 1 drp EACH EY E DAILY PRN dry eye(s) 04/06/25 04/06/25 History 80 0.5 %-1 %-0.5 % eye drops (Refresh Optive Advanced) cholecalciferol (vitamin D3) 50 2,000 unit PO BID 03/2604/06/25 History mcg (2,000 unit) capsule clindamycin HCl 300 mg capsule 600 mg PO PRN 04/06/25 04/06/25 History cyanocobalamin (vitamin B-12) 1,000 mcg subcut MONTHLY 04/06/25 04/06/25 History 1,000 mcg/mL injection solution cyclosporine 0.05 % eye drops in a 1 drp EACH EYE BID 04/06/25 04/06/25 History dropperette (Restasis) ferrous sulfate 325 mg (65 mg 325 mg PO DAILY 04/06/25 04/06/25 History iron) tablet (iron) fluticasone fur. 200 mcg-umeclid 1 inh inhalation WM Y 04/06/25 04/06/25 History 62.5 mcg-vilant 25 mcg inhalat.powder (Trelegy Ellipta) insulin NPH isoph U-100 human 100 30 unit subcut QAM 1 04/07/25 History unit/mL subcutaneous suspension (Humulin N NPH U-100 Insulin (isophane susp)) insulin regular human 100 unit/mL 14 unit subcut TID 1 04/06/25 History injection solution (Humulin R Regular U-100 Insulin) insulin syringe-needle U-100 0.5 04/06/25 04/06/25 Hi story mL 31 gauge x 5/16 (Ultra-Fine Insulin Syringe) metoprolol succinate 25 mg 25 mg PO DAILY 04/06/2506/19 History tablet,extended release 24 hr multivitamin (Daily Multi-Vitamin 1 tablet PO DAILY 04/06/25 History tablet) tamsulosin 0.4 mg capsule 0.4 mg PO DAILY 04/06/2506/19 History vit C 250 mg-vit E 90 mg-zinc 40 1 tablet PO BID 04/0604/06/25 History mg-copper 1 [id number] capsule (PreserVision AREDS-2) white petrolatum-mineral oil 94 1 applic EACH EYE HS 1 04/07/25 History %-3 % eye ointment (Systane Nighttime) Allergies Allergy/AdvReac Type Severity Reaction Status Date / Time Penicillins Allergy Unknown Rash Verified 04/06/25 20:10 Vital Signs Vital Signs - 24 hr 04/06/25 14:08 04/06/25 14:15 04/06/25 14:23 Temperature Pulse Rate 93 99 Respiratory Rate 22 H Blood Pressure 150/75 H Pulse Oximetry 99 98 Oxygen Delivery Nasal Cannula Oxygen Flow Rate 3 3 04/06/25 14:24 04/06/25 15:48 04/06/25 17:51 Temperature 36.7 C Pulse Rate 96 93 Respiratory Rate 18 18 Blood Pressure 120/70 116/68 Pulse Oximetry 97 98 99 Oxygen Delivery Oxygen Flow Rate 04/06/25 17:59 04/06/25 19:58 04/06/25 20:00 Temperature 36.5 C Pulse Rate 89 77 72 Respiratory Rate 18 18 Blood Pressure 116/68 130/99 H Pulse Oximetry 99 99 Oxygen Delivery Oxygen Flow Rate 04/06/25 20:10 04/06/25 22:00 04/06/25 23:57 Temperature Pulse Rate 72 70 71 Respiratory Rate 18 16 Blood Pressure Pulse Oximetry 99 97 Oxygen Delivery Nasal Cannula CPAP Oxygen Flow Rate 2 04/07/25 00:00 04/07/25 00:00 04/07/25 02:00 Temperature 36.6 C Pulse Rate 71 78 75 Respiratory Rate 16 Blood Pressure 137/55 L Pulse Oximetry 97 Oxygen Delivery Oxygen Flow Rate 04/07/25 03:39 04/07/25 04:00 04/07/25 04:00 Temperature 36.7 C Pulse Rate 76 74 76 Respiratory Rate 14 14 Blood Pressure 134/54 L Pulse Oximetry 97 97 Oxygen Delivery Room Air Oxygen Flow Rate 04/07/25 06:00 04/07/25 08:00 04/07/25 09:04 Temperature 36.6 C Pulse Rate 70 72 69 Respiratory Rate 18 Blood Pressure 124/72 Pulse Oximetry 97 Oxygen Delivery Oxygen Flow Rate Exam 2 Const: General: comfortable, no acute distress, alert and awake O rientation/consciousness: patient oriented x3 HENMT: Head: normal to inspection Eyes: General: appearance normal, both eyes and all related structures P upils: Equal, round and reactive pupils present Neck: Neck: normal visual inspection, supple and no JVD Carotids: normal carotid upstroke Resp: Effort & Inspection: normal respiratory effort Auscultation: clear to auscultation bilaterally Cardio: Rate: regular rate Rhythm: regular rhythm Heart sounds: S1 normal heart sound present, S2 normal heart sound present and no murmurs O ther: he has reproducible chest wall pain to palpation GI: Auscultation: normal bowel sounds Skin: General skin exam: normal color Neuro: General: patient oriented x3 Cranial nerves: Yes Equal, round and reactive pupils present Extrem: General: normal to inspection Psych: Appearance: grossly normal Mental Status: mental status grossly normal Results Labs and Meds 04/07/25 04:08 04/06/25 14:16 Lab results: Cardiac Enzymes 04/06/25 04/06/25 04/06/25 Range/Units 14:16 17:41 22:06 AST 36 (17-59) U/L Troponin I 0.012 0.084 H* D 0.244 H* D (0.000-0.034) ng/mL Coagulation 04/06/25 04/06/25 04/07/25 Range/Units 14:16 18:56 04:08 PT 14.7 14.3 (11.1-14.7) Seconds APTT 34.8 34.0 99.0 H (22.3-36.8) Seconds Lipids 04/07/25 Range/Units 04:08 Triglycerides 131 (<150) mg/dL Cholesterol 126 (0-200) mg/dL CBC 04/06/25 04/06/25 04/07/25 Range/Units 14:16 22:06 04:08 WBC 8.5 8.8 7.5 (4.5-10.0) K/mm3 RBC 5.23 4.86 5.13 (4.6-6.20) M/mm3 Hgb 14.7 13.7 L 14.3 (14.0-18.0) g/dL Hct 47.2 43.9 47.5 (42.0-52.0) % Plt Count 195 182 165 (150-375) k/mm3 Lymph # (Auto) 1.25 0.91 0.77 L (0.9-3.2) K/mm3 [place] # (Auto) 0.8 H 0.8 H 0.7 H (0.1-0.6) K/mm3 Eos # (Auto) 0.1 0.1 0.1 (0-0.3) K/mm3 Baso # (Auto) 0.1 0.0 0.0 (0.0-0.1) K/mm3 Comprehensive Metabolic Panel 04/06/25 Range/Units 14:16 Sodium 138 (137-145) mmol/L Potassium 4.6 (3.4-5.0) mmol/L Chloride 102 (98-107) mmol/L Carbon Dioxide 29 (22-30) mmol/L BUN 19 (9-20) mg/dL Creatinine 0.88 (0.7-1.3) mg/dL Glucose 181 H (65-110) mg/dL Calcium 9.3 (8.4-10.2) mg/dL AST 36 (17-59) U/L ALT 40 (6-50) U/L Alkaline Phosphatase 130 H (38-126) U/L Total Protein 6.9 (6.3-8.2) g/dL Albumin 4.0 (3.5-5.1) g/dL Intake and Output 04/06/25 04/07/25 04/07/25 23:59 07:59 15:59 Intake Total 1006.9 Output Total 300 450 Balance -300 556.9 Intake: IV 56.9 Heparin Sod/D5w 100 Units/ml 25 56.9 ,000 units In 250 ml @ 900 UNITS/HR 9 mls/hr IV CONT .Q24H [facility] Rx#:[id number] Oral 950 Output: Urine 300 450 Other: # Unmeasured Voids 1 Number of Bowel Movements Today 0 0 Patient Weight 04/07/25 23:59 Weight 88.8 kg
[2025-04-07 10:39] LABS: Partial Thromboplastin Time 72.7 Seconds (22.3-36.8)
[2025-04-07 10:44] LABS: Troponin I 0.144 ng/mL (0.000-0.034)
[2025-04-07] MEDS: INSULIN ASPART (*BKC) 100 UNITS/ML SUB-Q ×2 (11:29→16:51)
[2025-04-07] MEDS: INSULIN GLARGINE (*BKC) 100 UNITS/ML 24 UNITS SUB-Q (21:15)
[2025-04-08] VITALS (22 sets, daily range): BP systolic 121–170; BP diastolic 49–91; PULSE 49–64; RESP 10–24; TEMP 36.4–37.1; O2SAT 97–100
[2025-04-08] MEDS: HEPARIN SOD/D5W 100 UNITS/ML 25,000 UNITS/250 ML BAG 9 UNITS IV CONT (00:06)
[2025-04-08 04:26] LABS: Anion Gap 5 mmol/L (4-12); Blood Urea Nitrogen 23 mg/dL (9-20); Calcium 8.7 mg/dL (8.4-10.2); Carbon Dioxide 28 mmol/L (22-30); Chloride 100 mmol/L (98-107); Estimated CRCL calculation 78 ml/min; Estimated Glomerular Filt Rate > 60; Glucose 322 mg/dL (65-110); Potassium 4.5 mmol/L (3.4-5.0); Sodium 133 mmol/L (137-145)
[2025-04-08] MEDS: FLUTICASONE/UMECLIDIN/VILANTER 200-62.5-25 MCG ELLIPTA 1 PUFF INHALATION (08:34)
[2025-04-08] MEDS: FERROUS SULFATE 325 MG TABLET PO (08:39)
[2025-04-08] MEDS: TAMSULOSIN HCL 0.4 MG CAPSULE PO (08:39)
[2025-04-08] MEDS: ROSUVASTATIN 20 MG TABLET 40 MG PO (08:39)
[2025-04-08] MEDS: CHOLECALCIFEROL (VITAMIN D3) 25 MCG (1,000 UNITS) TABLET 50 MCG PO ×2 (08:39→16:07)
[2025-04-08] MEDS: ASPIRIN 81 MG ENTERIC TABLET PO (08:40)
[2025-04-08] MEDS: METOPROLOL SUCCINATE EXT REL 25 MG TABCR PO (08:40)
[2025-04-08] MEDS: cycloSPORINE 0.4 ML OPHTH SOLUTION 1 DROP EACH EYE (08:41)
[2025-04-08] MEDS: MULTIVITAMINS THERAPEUTIC TAB (*BKC) 1 TABLET PO (08:41)
--- NOTE | 2025-04-08 10:34 | WPDCARDPROC ---
Cardiac Cath Procedure Note Date of procedure:: 04/08/25 Performing physician:: Patricia Emery MD Date of service 04/08/2025 Indication:: Chest pain and elevated troponins Brief clinical history:: This 74-year-old patient with prior history of CABG with CHAIDEZ to LAD, known occluded SVG to RCA and occluded other grafts. 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 Engagement done with RCB catheter. At that time the CHAIDEZ to LAD was patent. Reported there was 40% proximal large ramus. Comes to the hospital chest pain and troponins minimally elevated. No ischemic changes on EKG and echo looked unremarkable during this admission Procedure Procedure performed:: 1-Moderate sedation that started at 9:25 a.m. and ended at 10:26 a.m. with total duration 61 minutes using 2mg of Versed and 50mcg fentanyl. The registered nurse was monico frazier 2-Selective left and right coronary angiogram. 3-selective coronary bypass graft angiogram. 4-Left heart catheterization with measurement of LVEDP and measurement of gradient across aortic valve. 5-balloon angioplasty of proximal and mid ramus intermedius using 3 x 15 balloon. 6-intravascular ultrasound of the ramus intermedius. 7-Right common femoral arterial angiogram. 8-Deployment of 6 [place] Angio-Seal. Sedation/Medication given:: Moderate sedation. Access site:: Right common femoral artery. Estimated blood loss:: 10cc Procedure note:: After informed consent patient was brought in to label folder with the was draped and prepped in usual manner. Moderate sedation was given and the right groin was infiltrated using 1% lidocaine. Five [place] sheath was obtained using micropuncture needle and the modified Seldinger technique. Selective left coronary angiogram was done using JL4 catheter with the tip of the catheter placed in the left main coronary artery. Selective right coronary angiogram was done using JR4 catheter with the tip of the catheter placed to the right coronary artery. JR4 was advanced to the left subclavian and CHAIDEZ angiogram was done. Anomalous left circumflex artery was engaged using RCB catheter. After that 5 [place] pigtail catheter was advanced across the aortic valve into the left ventricle with measurement of LVEDP and measurement of gradient across aortic valve. Right common femoral arterial angiogram was done. -after that 6 [place] guide catheter CLS 3.5 was advanced and engaged left and then coronary wire luge was advanced to distal ramus and then balloon angioplasty was done using 3 x 15 with 2 inflations each in the normal pressure for 20 seconds. Then we tried to advance IVUS however stuck at the proximal lesion which appeared to be calcified. Diameter of the artery 3.5. Could not advance IVUS. Took 6 [place] GuideLiner and despite that could not a advance the IVUS. Findings:: 1- left coronary artery is a large artery. Left main ostial 10% 2- left anterior descending artery is a large artery that runs and wraps around the apex. At the junction of the proximal to mid segment 90%. 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 Hazy. 5- LVEDP was 20 mm Hg and no gradient across aortic valve. 6- opening arterial pressure was 118/72 and closing pressure was 140/61 7- right femoral artery angiogram shows no significant disease in the right common femoral artery. Conclusion:: -hazy proximal and mid ramus intermedius. Status post balloon angioplasty. The lesion is calcified. Assessment and Plan Assessment and plan (1) Elevated troponin: Code(s): R79.89 - Other specified abnormal findings of blood chemistry Status: Acute Plan Will plan to discuss with patient's rn house supervisor Dr. flanagan DC'd patient for intervention on the ramus intermedius using shockwave/rotablator. -in the meanwhile will add Plavix to patient's anticoagulation regimen along with the Eliquis.
--- NOTE | 2025-04-08 11:09 | WPDMODSED ---
Moderate Sedation Note-Pt Data Patient Data Diagnosis: Elevated troponins and chest pain Present Complaint: Chest pain Procedure to be performed/Plan: Coronary angiogram Allergies Allergy/AdvReac Type Severity Reaction Status Date / Time Penicillins Allergy Unknown Rash Verified 04/06/25 20:10 Home Medications ?Medication ?Instructions ?Recorded ?Confirmed ?Type aspirin 81 mg tablet,delayed 81 mg PO DAILY 06/10/20 04/06/25 History release rosuvastatin 40 mg tablet 40 mg PO DAILY 06/10/20 04/06/25 History albuterol sulfate 0.63 mg/3 mL 0.63 mg inhalation Q6H 04/06/25 04/06/25 History solution for nebulization albuterol sulfate 90 mcg/actuation 2 inh inhalation Q4-6H PRN 04/06/25 04/06/25 History aerosol inhaler (Ventolin HFA) shortness of breath or wheezing apixaban 5 mg tablet (Eliquis) 5 mg PO Q12H 04/06/25 04/06/25 History benazepril 5 mg tablet 5 mg PO DAILY 04/06/25 04/06/25 History blood sugar diagnostic (FreeStyle 04/06/25 04/06/25 History Lite Strips) blood-glucose meter (FreeStyle 04/06/25 04/06/25 History Lite Meter kit) [id number] 1 drp EACH EYE DAILY PRN dry eye(s) 04/06/25 04/06/25 History 80 0.5 %-1 %-0.5 % eye drops (Refresh Optive Advanced) cholecalciferol (vitamin D3) 50 2,000 unit PO BID 04/06/25 04/06/25 History mcg (2,000 unit) capsule clindamycin HCl 300 mg capsule 600 mg PO PRN 04/06/25 04/06/25 History cyanocobalamin (vitamin B-12) 1,000 mcg subcut MONTHLY 04/06/25 04/06/25 History 1,000 mcg/mL injection solution cyclosporine 0.05 % eye drops in a 1 drp EACH EYE BID 04/06/25 04/06/25 History dropperette (Restasis) ferrous sulfate 325 mg (65 mg 325 mg PO DAILY 04/06/25 04/06/25 History iron) tablet (iron) fluticasone fur. 200 mcg-umeclid 1 inh inhalation DAILY 04/06/25 04/06/25 History 62.5 mcg-vilant 25 mcg inhalat.powder (Trelegy Ellipta) insulin NPH isoph U-100 human 100 30 unit subcut QAM 04/06/25 04/07/25 History unit/mL subcutaneous suspension (Humulin N NPH U-100 Insulin (isophane susp)) insulin regular human 100 unit/mL 14 unit subcut TID 04/06/25 04/06/25 History injection solution (Humulin R Regular U-100 Insulin) insulin syringe-needle U-100 0.5 04/06/25 04/06/25 History mL 31 gauge x 5/16 (Ultra-Fine Insulin Syringe) metoprolol succinate 25 mg 25 mg PO DAILY 04/06/25 04/06/25 History tablet,extended release 24 hr multivitamin (Daily Multi-Vitamin 1 tablet PO DAILY 04/06/25 04/06/25 History tablet) tamsulosin 0.4 mg capsule 0.4 mg PO DAILY 04/06/25 04/06/25 History vit C 250 mg-vit E 90 mg-zinc 40 1 tablet PO BID 04/06/25 04/06/25 History mg-copper 1 [id number] capsule (PreserVision AREDS-2) white petrolatum-mineral oil 94 1 applic EACH EYE HS 04/07/25 04/07/25 History %-3 % eye ointment (Systane Nighttime) Current Medications: Active Medications Albuterol (Albuterol Sulfate Neb 2.5 Mg/3 Ml Inh) 2.5 mg INHALATION Q6HRT PRN PRN Reason: Shortness Of Breath Or Wheezing Artificial Tears (Artificial Tears Ophth Soln 15 Ml Bottle) 1 drop EACH EYE DAILY PRN PRN Reason: Dry Eye(s) Aspirin (Aspirin 81 Mg Enteric Tablet) 81 mg PO DAILY [facility] Last Admin: 04/08/25 08:40 Dose: 81 mg Cyclosporine (Cyclosporine 0.4 Ml Ophth Solution) 1 drop EACH EYE Q12HR [facility] Last Admin: 04/08/25 08:41 Dose: 1 drop Dextrose (Dextrose 50% 25 Gm/50 Ml Syringe) 12.5 gm IV PUSH PRN PRN; Protocol PRN Reason: Hypoglycemia Ferrous Sulfate (Ferrous Sulfate 325 Mg Tablet) 325 mg PO DAILY [facility] Last Admin: 04/08/25 08:39 Dose: 325 mg Fluticasone/Umeclidinium/Vilanterol (Fluticasone/Umeclidin/Vilanter 200-62.5-25 Mcg Ellipta) 1 puff INHALATION DAILY [facility] Last Admin: 04/08/25 08:34 Dose: 1 puff Glucagon (Glucagon For Inj 1 Mg Vial) 1 mg IM PRN PRN; Protocol PRN Reason: Hypoglycemia Glucose (Glucose Oral Gel 15 Gm Of Glucse In 37.5 Gm Tube) 15 gm PO PRN PRN; Protocol PRN Reason: Hypoglycemia Heparin Sodium (Porcine) (Heparin Sodium 5,000 Units/Ml Vial) 4,000 units IV PUSH PRN PRN PRN Reason: aPTT less than 55 seconds Heparin Sodium (Porcine) (Heparin Sodium 5,000 Units/Ml Vial) 3,000 units IV PUSH PRN PRN PRN Reason: aPTT 55 - 70 seconds Heparin Sodium/Dextrose (Heparin Sodium/D5w 100 Units/Ml) 25,000 units in 250 mls @ 9 mls/hr IV CONT .Q24H [facility]; Protocol Last Admin: 04/08/25 00:06 Dose: 900 units/hr, 9 mls/hr Dextrose (Dextrose 5% 1,000 Ml) 1,000 mls @ 100 mls/hr IVPB PRN PRN; Protocol PRN Reason: Hypoglycemia Insulin Aspart (Insulin Aspart (*Bkc) 100 Units/Ml) 4 - 8 units SUB-Q TIDWM [facility]; Protocol Last Admin: 04/08/25 10:59 Dose: Not Given Insulin Glargine (Insulin Glargine (*Bkc) 100 Units/Ml) 24 units SUB-Q HS [facility] Last Admin: 04/07/25 21:15 Dose: 24 units Lisinopril (Lisinopril 5 Mg Tablet) 5 mg PO DAILY [facility] Last Admin: 04/08/25 08:41 Dose: 5 mg Metoprolol Succinate (Metoprolol Succinate Ext Rel 25 Mg Tabcr) 25 mg PO DAILY [facility] Last Admin: 04/08/25 08:40 Dose: 25 mg Multivitamins Therapeutic (Multivitamins Therapeutic Tab (*Bkc)) 1 tablet PO DAILY@0800 [facility] Last Admin: 04/08/25 08:41 Dose: 1 tablet Nitroglycerin (Nitroglycerin Sl 0.4 Mg Tablet) 0.4 mg SUBLINGUAL Q5MIN PRN PRN Reason: Chest Pain Ondansetron HCl (Ondansetron Inj 4 Mg/2 Ml Vial) 4 mg IV PUSH Q4H PRN PRN Reason: Nausea Perflutren Lipid Microsphere (Perflutren Lipid Microspheres 1.5 Ml Vial Diluted To 10 Ml Total Volume) 0 ml IV PUSH ONCE PRN; Protocol PRN Reason: adequate visualization Stop: 04/10/25 09:53 Rosuvastatin Calcium (Rosuvastatin 20 Mg Tablet) 40 mg PO DAILY [facility] Last Admin: 04/08/25 08:39 Dose: 40 mg Tamsulosin HCl (Tamsulosin Hcl 0.4 Mg Capsule) 0.4 mg PO DAILY [facility] Last Admin: 04/08/25 08:39 Dose: 0.4 mg Vitamin D (Cholecalciferol (Vitamin D3) 25 Mcg (1,000 Units) Tablet) 50 mcg PO BID [facility] Last Admin: 04/08/25 08:39 Dose: 50 mcg Sedation/Anesthesia: No previous sedation/anesthesia problems (including family history). [facility] Past Medical History Medical History COPD (chronic obstructive pulmonary disease) DMII (diabetes mellitus, type 2) DORENE (obstructive sleep apnea) Alzheimer's dementia Family History Family History Mother Alzheimer disease Father Alzheimer disease Diabetes mellitus Sibling History of kidney problems Social History Social History Smoking status: Never smoker Second hand tobacco smoke exposure: No Alcohol intake: never Substance use: never Substance use type: does not use Lack of Transportation: No Lack of Food: Never True Current Housing: I Have Housing Concerned About Future Housing: No Difficulty Paying Gas/Electric Bills: No Difficulty Paying for Meds: No Currently Unemployed: No Education: High School Diploma/GED Difficulty w/ Childcare or Family Care: No Spiritual care concerns: No Mod Sed Physical Exam Physical Exam Pre Procedural Exam: Normal: Appearance, Eyes, Ears, Nose, Neck, Throat, Airway, Lungs, Heart Size, Heart Rate, Heart Rhythm, Neuro Exam, Abdomen, Liver, Kidneys, Spleen, Breasts, Genitalia, Extremities and Skin Hours since solid foods: 8 Hours since liquid intake: 8 Mallampati Classification: class 1 Internal Medicine - PN: Obj Da Vital Signs Vital Signs: Vital Signs - 24 hr 04/07/25 12:00 04/07/25 12:00 04/07/25 14:00 Temperature 36.7 C Pulse Rate 69 71 64 Pulse Rate [Bilateral Pedal (Dorsalis Pedis) Palpation] Respiratory Rate 18 Blood Pressure 128/65 Pulse Oximetry 97 Oxygen Delivery 04/07/25 16:00 04/07/25 16:00 04/07/25 18:00 Temperature 36.9 C Pulse Rate 65 62 62 Pulse Rate [Bilateral Pedal (Dorsalis Pedis) Palpation] Respiratory Rate 20 Blood Pressure 128/61 Pulse Oximetry 97 Oxygen Delivery 04/07/25 19:54 04/07/25 20:00 04/07/25 20:32 Temperature 36.9 C Pulse Rate 61 55 L 50 L Pulse Rate [Bilateral Pedal (Dorsalis Pedis) Palpation] Respiratory Rate 18 Blood Pressure 122/52 L Pulse Oximetry 97 Oxygen Delivery 04/07/25 22:00 04/07/25 23:59 04/08/25 00:00 Temperature 37.1 C Pulse Rate 61 59 L 51 L Pulse Rate [Bilateral Pedal (Dorsalis Pedis) Palpation] Respiratory Rate 18 Blood Pressure 152/74 H Pulse Oximetry 98 Oxygen Delivery 04/08/25 02:00 04/08/25 02:01 04/08/25 04:00 Temperature 37.1 C Pulse Rate 55 L 49 L 64 Pulse Rate [Bilateral Pedal (Dorsalis Pedis) Palpation] Respiratory Rate 18 Blood Pressure 134/66 Pulse Oximetry 98 Oxygen Delivery 04/08/25 04:00 04/08/25 06:00 04/08/25 08:00 Temperature 36.7 C Pulse Rate 57 L 60 55 L Pulse Rate [Bilateral Pedal (Dorsalis Pedis) Palpation] Respiratory Rate 24 H Blood Pressure 135/61 Pulse Oximetry 98 Oxygen Delivery 04/08/25 08:00 04/08/25 08:36 04/08/25 08:40 Temperature Pulse Rate 58 L 58 L 58 L Pulse Rate [Bilateral Pedal (Dorsalis Pedis) Palpation] Respiratory Rate Blood Pressure Pulse Oximetry Oxygen Delivery 04/08/25 10:45 04/08/25 10:45 04/08/25 11:00 Temperature Pulse Rate 62 Pulse Rate [Bilateral Pedal (Dorsalis Pedis) Palpation] 62 63 Respiratory Rate 12 Blood Pressure 156/81 H Pulse Oximetry 99 Oxygen Delivery Room Air 04/08/25 11:00 Temperature Pulse Rate 63 Pulse Rate [Bilateral Pedal (Dorsalis Pedis) Palpation] Respiratory Rate 10 L Blood Pressure 155/71 H Pulse Oximetry 98 Oxygen Delivery Room Air Intake/Output Intake/Output: Intake & Output 04/05/25 04/06/25 04/07/25 04/08/25 23:59 23:59 23:59 23:59 Intake Total 2218.5 398.2 Output Total 300 750 540 Balance -300 1468.5 -141.8 Meds/Results Medications: Active Medications Generic Name Dose Route Start Last Admin Trade Name Freq PRN Reason Stop Dose Admin Albuterol 2.5 mg 04/06/25 22:06 Albuterol Sulfate Neb 2.5 Mg/3 Ml Inh INHALATION Q6HRT PRN Shortness Of Breath Or Wheezing Artificial Tears 1 drop 04/06/25 22:19 Artificial Tears Ophth Soln 15 Ml Bottle EACH EYE DAILY PRN Dry Eye(s) Aspirin 81 mg 04/07/25 09:00 04/08/25 08:40 Aspirin 81 Mg Enteric Tablet PO 81 mg DAILY [facility] Administration Cyclosporine 1 drop 04/06/25 23:40 04/08/25 08:41 Cyclosporine 0.4 Ml Ophth Solution EACH EYE 1 drop Q12HR [facility] Administration Dextrose 12.5 gm 04/06/25 22:08 Dextrose 50% 25 Gm/50 Ml Syringe IV PUSH PRN PRN Hypoglycemia Protocol Ferrous Sulfate 325 mg 04/07/25 09:00 04/08/25 08:39 Ferrous Sulfate 325 Mg Tablet PO 325 mg DAILY [facility] Administration Fluticasone/Umeclidinium/Vilanterol 1 puff 04/07/25 09:00 04/08/25 08:34 Fluticasone/Umeclidin/Vilanter 200-62.5-25 Mcg Ellipta INHALATION 1 puff DAILY [facility] Administration Glucagon 1 mg 04/06/25 22:08 Glucagon For Inj 1 Mg Vial IM PRN PRN Hypoglycemia Protocol Glucose 15 gm 04/06/25 22:08 Glucose Oral Gel 15 Gm Of Glucse In 37.5 Gm Tube PO PRN PRN Hypoglycemia Protocol Heparin Sodium (Porcine) 4,000 units 04/06/25 18:16 Heparin Sodium 5,000 Units/Ml Vial IV PUSH PRN PRN aPTT less than 55 seconds Heparin Sodium (Porcine) 3,000 units 04/06/25 18:16 Heparin Sodium 5,000 Units/Ml Vial IV PUSH PRN PRN aPTT 55 - 70 seconds Heparin Sodium/Dextrose 25,000 units in 250 mls @ 9 mls/hr 04/06/25 18:20 04/08/25 00:06 Heparin Sodium/D5w 100 Units/Ml IV CONT 900 units/hr .Q24H [facility] 9 mls/hr Protocol Administration 900 UNITS/HR Dextrose 1,000 mls @ 100 mls/hr 04/06/25 22:08 Dextrose 5% 1,000 Ml IVPB PRN PRN Hypoglycemia Protocol Insulin Aspart 4 - 8 units 04/07/25 08:00 04/08/25 10:59 Insulin Aspart (*Bkc) 100 Units/Ml SUB-Q Not Given TIDWM [facility] Protocol Insulin Glargine 24 units 04/07/25 21:00 04/07/25 21:15 Insulin Glargine (*Bkc) 100 Units/Ml SUB-Q 24 units HS [facility] Administration Lisinopril 5 mg 04/07/25 09:00 04/08/25 08:41 Lisinopril 5 Mg Tablet PO 5 mg DAILY [facility] Administration Metoprolol Succinate 25 mg 04/07/25 09:00 04/08/25 08:40 Metoprolol Succinate Ext Rel 25 Mg Tabcr PO 25 mg DAILY [facility] Administration Multivitamins Therapeutic 1 tablet 04/07/25 08:00 04/08/25 08:41 Multivitamins Therapeutic Tab (*Bkc) PO 1 tablet DAILY@0800 [facility] Administration Nitroglycerin 0.4 mg 04/06/25 18:17 Nitroglycerin Sl 0.4 Mg Tablet SUBLINGUAL Q5MIN PRN Chest Pain Ondansetron HCl 4 mg 04/06/25 18:17 Ondansetron Inj 4 Mg/2 Ml Vial IV PUSH Q4H PRN Nausea Perflutren Lipid Microsphere 0 ml 04/07/25 09:53 Perflutren Lipid Microspheres 1.5 Ml Vial Diluted To 10 Ml Total Volume IV PUSH 04/10/25 09:53 ONCE PRN adequate visualization Protocol Rosuvastatin Calcium 40 mg 04/07/25 09:00 04/08/25 08:39 Rosuvastatin 20 Mg Tablet PO 40 mg DAILY [facility] Administration Tamsulosin HCl 0.4 mg 04/07/25 09:00 04/08/25 08:39 Tamsulosin Hcl 0.4 Mg Capsule PO 0.4 mg DAILY [facility] Administration Vitamin D 50 mcg 04/06/25 23:40 04/08/25 08:39 Cholecalciferol (Vitamin D3) 25 Mcg (1,000 Units) Tablet PO 50 mcg BID [facility] Administration Radiology Results: ITS Impressions Chest X-Ray 04/06/25 15:02 Impression: No acute cardiopulmonary abnormality. Labs 04/07/25 04:08 04/08/25 03:30 Labs: Laboratory Results - last 24 hr 04/07/25 04/07/25 04/08/25 16:28 20:42 03:30 Sodium 133 L Potassium 4.5 Chloride 100 Carbon Dioxide 28 Anion Gap 5 BUN 23 H Creatinine 0.75 Estim Creat Clear Calc 78 Estimated GFR > 60 Glucose 322 H POC Capillary Glucose 316 H 290 H Calcium 8.7 ASA Classification/Sedation ASA Classification/Sedation ASA Class: I Emergent: No Risks: Risks, benefits and alternatives explained and patient/family accepted plan for sedation. Patient re-evaluated immediately prior to sedation.
--- NOTE | 2025-04-08 11:10 | WPDHPUPDATE1 ---
History and Physical Update Update Date/Time: 04/08/25 11:10 History and Physical has been reviewed, including an updated exam of the patient. There are NO changes in the patient's condition. Risks, benefits, and alternatives have been discussed and questions answered. Patient agrees to proceed with procedure.
--- NOTE | 2025-04-08 11:29 | ECG_ITS ---
Test Date: 2025-04-08 11:37:18 Measurements Intervals [place] Rate: 60 P: 254 SC: 178 QRS: 41 QRSD: 106 T: 2 QT: 426 QTc: 427 Interpretive Statements SINUS RHYTHM DELAYED PRECORDIAL R/S TRANSITION BORDERLINE ECG Compared to ECG 04/06/2025 17:49:32 Atrial flutter no longer present Electronically Signed On 04-08-2025 11:39:49 CDT by Juanito Roa D.O.
[2025-04-08] MEDS: CLOPIDOGREL BISULFATE 75 MG TABLET PO (11:46)
[2025-04-08] MEDS: INSULIN ASPART (*BKC) 100 UNITS/ML SUB-Q ×2 (12:11→17:09)
--- NOTE | 2025-04-08 13:28 | P.PNIM_ITS ---
Progress Note: A&P Assessment and Plan (1) Chest pain: Qualifiers: Chest pain type: unspecified Qualified Code(s): R07.9 - Chest pain, unspecified Code(s): R07.9 - Chest pain, unspecified Status: Acute Assessment and Plan: Complains of sudden crushing chest pain located over the middle of his chest and radiating to his left shoulder. History of CABG x4. Takes Eliquis and aspirin 81 mg. EKG with no evidence of ischemic event. Initial troponin 0.012 and increased to 0.84. Await 6hr trop * concern for NSTEMI * heparin drip per protocol started * continue beta-scott * continue statin * sublingual nitro p.r.n. * lipid panel ordered * Heart cath tomorrow - NPO at midnight * Echocardiogram 04/07 1. Complete two-dimensional, color flow and Doppler transthoracic echocardiogram is performed. 2. The left ventricle is normal in size and systolic function. The left ventricular ejection fraction is visually estimated to be 60-65%. 3. The right ventricle is normal in size and systolic function. 4. The aortic valve is trileaflet and calcified. There is likely mild aortic stenosis. There is no aortic regurgitation. * Heart catheterization performed on 04/08 * hazy proximal and mid ramus intermedius. Status post balloon angioplasty. The lesion is calcified. * Requires transfer to tertiary center for calcified lesion * Accepted bed at [facility] - bed waiting (2) Alzheimer's dementia: Qualifiers: Alzheimer's disease onset: early onset Dementia severity: unspecified severity Dementia behavioral or psychological symptom: without behavioral, psychotic, or mood disturbance or anxiety Qualified Code(s): G30.0 - Alzheimer's disease with early onset; F02.80 - Dementia in other diseases classified elsewhere, unspecified severity, without behavioral disturbance, psychotic disturbance, mood disturbance, and anxiety Code(s): G30.9 - Alzheimer's disease, unspecified; F02.80 - Dementia in other diseases classified elsewhere, unspecified severity, without behavioral disturbance, psychotic disturbance, mood disturbance, and anxiety Status: Acute Assessment and Plan: Per family, patient unable to tolerate Aricept due to drowsiness. Patient has had no mood disturbances behavioral disturbances. * continue to monitor for symptoms of agitation * fall precautions (3) DORENE (obstructive sleep apnea): Code(s): G47.33 - Obstructive sleep apnea (adult) (pediatric) Status: Chronic Assessment and Plan: * CPAP for all sleep using home settings (4) DMII (diabetes mellitus, type 2): Qualifiers: Diabetes mellitus exterminator helper termite insulin use: with exterminator helper termite use Diabetes mellitus complication status: with other specified complication Qualified Code(s): E11.69 - Type 2 diabetes mellitus with other specified complication; Z79.4 - intermediate designer (current) use of insulin Code(s): E11.9 - Type 2 diabetes mellitus without complications Status: Acute Assessment and Plan: * hypoglycemia protocol * POC blood glucose ACHS * home medication: NPH 30 units b.i.d., regular insulin 14 get TID * correct regimen ordered: high corrective scale * Lantus 24 units HS (5) COPD (chronic obstructive pulmonary disease): Qualifiers: COPD type: unspecified COPD Qualified Code(s): J44.9 - Chronic obstruc tive pulmonary disease, unspecified Code(s): J44.9 - Chronic obstructive pulmonary disease, unspecified Status: Chronic Assessment and Plan: Not in acute acute exacerbation * albuterol sulfate q.6 p.r.n. * trilogy daily Plan Diet: Heart healthy. In the other night GI prophylaxis: NA DVT prophylaxis: heparin drip lines/drains: PIV Fluids: none Code status: Full code Subjective Date/time seen: 04/08/25 13:28 Interval history: 74 year old male with a PMH of DMII, DORENE wtih cpap, Alz dementia, COPD, HTN, CABG x4 presented to the ED on 04/06/25 with complaints of sudden crushing chest pain located over the middle of his chest and radiating to his left shoulder. 04/08/2025 This patient sitting comfortably in bed at time examination. Denies any chest pain, shortness of breath, nausea/vomiting or abdominal pain. Patient was taken for heart catheterization today - hazy proximal and mid ramus intermedius. Status post balloon angioplasty. The lesion is calcified. Will need transfer to tertiary center - patient has been accepted [facility]. Review of Systems Review of Systems: All systems reviewed & are unremarkable except as noted in HPI and below Exam Narrative: GENERAL: non-toxic appearing, in no acute distress. HEAD: Normocephalic, atraumatic. EYES: PERRLA. Conjunctivae clear. NOSE: Normal no drainage. THROAT: Pharynx clear, no exudate. NECK: Trachea midline. No adenopathy, no masses. RESPIRATORY: Airway patent, respirations nonlabored. CTA. CARDIOVASCULAR: Regular rate and rhythm. BREASTS: Defer GASTROINTESTINAL: Abdomen is soft and nontender. No organomegaly. Bowel sounds normal in all quadrants. Obese GENITOURINARY: Defer MUSCULOSKELETAL: Moves all extremities. No gross deformities. Moves all extremities well. No calf tenderness. SKIN: Warm, dry, normal color. NEURO: A&O X2 but able to correct answers if given time or reminders. Speech clear PSYCHIATRIC: Normal interaction Objective Data Vital Signs Vital Signs: Vital Signs - 24 hr 04/07/25 14:00 04/07/25 16:00 04/07/25 16:00 Temperature 98.4 F Pulse Rate 64 65 62 Pulse Rate [Bilateral Pedal (Dorsalis Pedis) Palpation] Respiratory Rate 20 Blood Pressure 128/61 Pulse Oximetry 97 Oxygen Delivery 04/07/25 18:00 04/07/25 19:54 04/07/25 20:00 Temperature 98.4 F Pulse Rate 62 61 55 L Pulse Rate [Bilateral Pedal (Dorsalis Pedis) Palpation] Respiratory Rate 18 Blood Pressure 122/52 L Pulse Oximetry 97 Oxygen Delivery 04/07/25 20:32 04/07/25 22:00 04/07/25 23:59 Temperature 98.8 F Pulse Rate 50 L 61 59 L Pulse Rate [Bilateral Pedal (Dorsalis Pedis) Palpation] Respiratory Rate 18 Blood Pressure 152/74 H Pulse Oximetry 98 Oxygen Delivery 04/08/25 00:00 04/08/25 02:00 04/08/25 02:01 Temperature Pulse Rate 51 L 55 L 49 L Pulse Rate [Bilateral Pedal (Dorsalis Pedis) Palpation] Respiratory Rate Blood Pressure Pulse Oximetry Oxygen Delivery 04/08/25 04:00 04/08/25 04:00 04/08/25 06:00 Temperature 98.8 F Pulse Rate 64 57 L 60 Pulse Rate [Bilateral Pedal (Dorsalis Pedis) Palpation] Respiratory Rate 18 Blood Pressure 134/66 Pulse Oximetry 98 Oxygen Delivery 04/08/25 08:00 04/08/25 08:00 04/08/25 08:36 Temperature 98.0 F Pulse Rate 55 L 58 L 58 L Pulse Rate [Bilateral Pedal (Dorsalis Pedis) Palpation] Respiratory Rate 24 H Blood Pressure 135/61 Pulse Oximetry 98 Oxygen Delivery 04/08/25 08:40 04/08/25 10:45 04/08/25 10:45 Temperature Pulse Rate 58 L 62 Pulse Rate [Bilateral Pedal (Dorsalis Pedis) Palpation] 62 Respiratory Rate 12 Blood Pressure 156/81 H Pulse Oximetry 99 Oxygen Delivery Room Air 04/08/25 11:00 04/08/25 11:00 04/08/25 11:15 Temperature Pulse Rate 63 Pulse Rate [Bilateral Pedal (Dorsalis Pedis) Palpation] 63 61 Respiratory Rate 10 L Blood Pressure 155/71 H Pulse Oximetry 98 Oxygen Delivery Room Air 04/08/25 11:15 04/08/25 11:30 04/08/25 11:30 Temperature Pulse Rate 61 58 L Pulse Rate [Bilateral Pedal (Dorsalis Pedis) Palpation] 58 L Respiratory Rate 12 17 Blood Pressure 160/76 H 170/73 H Pulse Oximetry 97 99 Oxygen Delivery Room Air Room Air 04/08/25 12:30 Temperature Pulse Rate 60 Pulse Rate [Bilateral Pedal (Dorsalis Pedis) Palpation] Respiratory Rate 16 Blood Pressure 142/66 H Pulse Oximetry 99 Oxygen Delivery Intake/Output Intake/Output: Intake & Output 04/05/25 04/06/25 04/07/25 04/08/25 23:59 23:59 23:59 23:59 Intake Total 2218.5 398.2 Output Total 300 750 540 Balance -300 1468.5 -141.8 Meds/Results Medications: Active Medications Generic Name Dose Route Start Last Admin Trade Name Freq PRN Reason Stop Dose Admin Albuterol 2.5 mg 04/06/25 22:06 Albuterol Sulfate Neb 2.5 Mg/3 Ml Inh INHALATION Q6HRT PRN Shortness Of Breath Or Wheezing Artificial Tears 1 drop 04/06/25 22:19 Artificial Tears Ophth Soln 15 Ml Bottle EACH EYE DAILY PRN Dry Eye(s) Aspirin 81 mg 04/07/25 09:00 04/08/25 08:40 Aspirin 81 Mg Enteric Tablet PO 81 mg DAILY REDD Administration Clopidogrel Bisulfate 75 mg 04/08/25 11:30 04/08/25 11:46 Clopidogrel Bisulfate 75 Mg Tablet PO 75 mg QAM REDD Administration Cyclosporine 1 drop 04/06/25 23:40 04/08/25 08:41 Cyclosporine 0.4 Ml Ophth Solution EACH EYE 1 drop Q12HR REDD Administration Dextrose 12.5 gm 04/06/25 22:08 Dextrose 50% 25 Gm/50 Ml Syringe IV PUSH PRN PRN Hypoglycemia Protocol Ferrous Sulfate 325 mg 04/07/25 09:00 04/08/25 08:39 Ferrous Sulfate 325 Mg Tablet PO 325 mg DAILY REDD Administration Fluticasone/Umeclidinium/Vilanterol 1 puff 04/07/25 09:00 04/08/25 08:34 Fluticasone/Umeclidin/Vilanter 200-62.5-25 Mcg Ellipta INHALATION 1 puff DAILY REDD Administration Glucagon 1 mg 04/06/25 22:08 Glucagon For Inj 1 Mg Vial IM PRN PRN Hypoglycemia Protocol Glucose 15 gm 04/06/25 22:08 Glucose Oral Gel 15 Gm Of Glucse In 37.5 Gm Tube PO PRN PRN Hypoglycemia Protocol Heparin Sodium (Porcine) 4,000 units 04/06/25 18:16 Heparin Sodium 5,000 Units/Ml Vial IV PUSH PRN PRN aPTT less than 55 seconds Heparin Sodium (Porcine) 3,000 units 04/06/25 18:16 Heparin Sodium 5,000 Units/Ml Vial IV PUSH PRN PRN aPTT 55 - 70 seconds Heparin Sodium/Dextrose 25,000 units in 250 mls @ 9 mls/hr 04/06/25 18:20 04/08/25 00:06 Heparin Sodium/D5w 100 Units/Ml IV CONT 900 units/hr .Q24H REDD 9 mls/hr Protocol Administration 900 UNITS/HR Dextrose 1,000 mls @ 100 mls/hr 04/06/25 22:08 Dextrose 5% 1,000 Ml IVPB PRN PRN Hypoglycemia Protocol Insulin Aspart 4 - 8 units 04/07/25 08:00 04/08/25 12:11 Insulin Aspart (*Bkc) 100 Units/Ml SUB-Q 5 units TIDWM REDD Administration Protocol Insulin Glargine 24 units 04/07/25 21:00 04/07/25 21:15 Insulin Glargine (*Bkc) 100 Units/Ml SUB-Q 24 units HS REDD Administration Lisinopril 5 mg 04/07/25 09:00 04/08/25 08:41 Lisinopril 5 Mg Tablet PO 5 mg DAILY REDD Administration Metoprolol Succinate 25 mg 04/07/25 09:00 04/08/25 08:40 Metoprolol Succinate Ext Rel 25 Mg Tabcr PO 25 mg DAILY REDD Administration Multivitamins Therapeutic 1 tablet 04/07/25 08:00 04/08/25 08:41 Multivitamins Therapeutic Tab (*Bkc) PO 1 tablet DAILY@0800 REDD Administration Nitroglycerin 0.4 mg 04/06/25 18:17 Nitroglycerin Sl 0.4 Mg Tablet SUBLINGUAL Q5MIN PRN Chest Pain Ondansetron HCl 4 mg 04/06/25 18:17 Ondansetron Inj 4 Mg/2 Ml Vial IV PUSH Q4H PRN Nausea Perflutren Lipid Microsphere 0 ml 04/07/25 09:53 Perflutren Lipid Microspheres 1.5 Ml Vial Diluted To 10 Ml Total Volume IV PUSH 04/10/25 09:53 ONCE PRN adequate visualization Protocol Rosuvastatin Calcium 40 mg 04/07/25 09:00 04/08/25 08:39 Rosuvastatin 20 Mg Tablet PO 40 mg DAILY REDD Administration Tamsulosin HCl 0.4 mg 04/07/25 09:00 04/08/25 08:39 Tamsulosin Hcl 0.4 Mg Capsule PO 0.4 mg DAILY REDD Administration Vitamin D 50 mcg 04/06/25 23:40 04/08/25 08:39 Cholecalciferol (Vitamin D3) 25 Mcg (1,000 Units) Tablet PO 50 mcg BID REDD Administration Radiology Results: ITS Impressions Chest X-Ray 04/06/25 15:02 Impression: No acute cardiopulmonary abnormality. Labs Labs: Laboratory Results - last 24 hr 04/07/25 04/07/25 04/08/25 16:28 20:42 03:30 Sodium 133 L Potassium 4.5 Chloride 100 Carbon Dioxide 28 Anion Gap 5 BUN 23 H Creatinine 0.75 Estim Creat Clear Calc 78 Estimated GFR > 60 Glucose 322 H POC Capillary Glucose 316 H 290 H Calcium 8.7 04/08/25 12:05 Sodium Potassium Chloride Carbon Dioxide Anion Gap BUN Creatinine Estim Creat Clear Calc Estimated GFR Glucose POC Capillary Glucose 266 H Calcium Quality VTE Prophylaxis VTE prophylaxis: pharmacologic ordered (Heparin drip)
--- NOTE | 2025-04-08 13:42 | PM.TDS ---
Transfer Discharge Sum: Prov Provider Date of admission: 04/07/25 16:16 Primary care physician: Jordan Chavez Admitting clinician: Celestina Tejada MD Consults: 04/06/25 18:18 Consult to Physician Routine Comment: Consulting Provider: Tung Salomon call or contact centre manager/MD group to consult: Cardiology-Information left with the exchange. Reason for consultation: Chest pain, elevated troponin Has provider been notified: Yes Receiving physician/facility: [facility] DS: Admitting Diagnosis Discharge Date 04/09/2025 Admitting Diagnosis Chest pain DS: Discharge Diagnosis Discharge Diagnosis (1) Chest pain: Qualifiers: Chest pain type: unspecified Qualified Code(s): R07.9 - Chest pain, unspecified Code(s): R07.9 - Chest pain, unspecified Status: Acute Assessment and Plan: Complains of sudden crushing chest pain located over the middle of his chest and radiating to his left shoulder. History of CABG x4. Takes Eliquis and aspirin 81 mg. EKG with no evidence of ischemic event. Initial troponin 0.012 and increased to 0.84. Await 6hr trop concern for NSTEMI heparin drip per protocol started continue beta-scott continue statin sublingual nitro p.r.n. lipid panel ordered Heart cath tomorrow - NPO at midnight Echocardiogram 04/07 1. Complete two-dimensional, color flow and Doppler transthoracic echocardiogram is performed. 2. The left ventricle is normal in size and systolic function. The left ventricular ejection fraction is visually estimated to be 60-65%. 3. The right ventricle is normal in size and systolic function. 4. The aortic valve is trileaflet and calcified. There is likely mild aortic stenosis. There is no aortic regurgitation. Heart catheterization performed on 04/08 hazy proximal and mid ramus intermedius. Status post balloon angioplasty. The lesion is calcified. Requires transfer to tertiary center for calcified lesion Accepted bed at [facility] - bed waiting (2) Alzheimer's dementia: Qualifiers: Alzheimer's disease onset: early onset Dementia severity: unspecified severity Dementia behavioral or psychological symptom: without behavioral, psychotic, or mood disturbance or anxiety Qualified Code(s): G30.0 - Alzheimer's disease with early onset; F02.80 - Dementia in other diseases classified elsewhere, unspecified severity, without behavioral disturbance, psychotic disturbance, mood disturbance, and anxiety Code(s): G30.9 - Alzheimer's disease, unspecified; F02.80 - Dementia in other diseases classified elsewhere, unspecified severity, without behavioral disturbance, psychotic disturbance, mood disturbance, and anxiety Status: Acute Assessment and Plan: Per family, patient unable to tolerate Aricept due to drowsiness. Patient has had no mood disturbances behavioral disturbances. continue to monitor for symptoms of agitation fall precautions (3) DORENE (obstructive sleep apnea): Code(s): G47.33 - Obstructive sleep apnea (adult) (pediatric) Status: Chronic Assessment and Plan: CPAP for all sleep using home settings (4) DMII (diabetes mellitus, type 2): Qualifiers: Diabetes mellitus residential insulin use: with residential use Diabetes mellitus complication status: with other specified complication Qualified Code(s): E11.69 - Type 2 diabetes mellitus with other specified complication; Z79.4 - residential (current) use of insulin Code(s): E11.9 - Type 2 diabetes mellitus without complications Status: Acute Assessment and Plan: hypoglycemia protocol POC blood glucose ACHS home medication: NPH 30 units b.i.d., regular insulin 14 get TID correct regimen ordered: high corrective scale Lantus 24 units HS (5) COPD (chronic obstructive pulmonary disease): Qualifiers: COPD type: unspecified COPD Qualified Code(s): J44.9 - Chronic obstructive pulmonary disease, unspecified Code(s): J44.9 - Chronic obstructive pulmonary disease, unspecified Status: Chronic Assessment and Plan: Not in acute acute exacerbation albuterol sulfate q.6 p.r.n. trilogy daily Plan Diet: Heart healthy. In the other night GI prophylaxis: NA DVT prophylaxis: heparin drip lines/drains: PIV Fluids: none Code status: Full code Transfer Discharge Sum: Med Medications Active and Home Medications: Home Medications aspirin 81 mg tablet,delayed release 81 mg PO DAILY 06/10/20 [History Confirmed 04/06/25] rosuvastatin 40 mg tablet 40 mg PO DAILY 06/10/20 [History Confirmed 04/06/25] albuterol sulfate 0.63 mg/3 mL solution for nebulization 0.63 mg inhalation Q6H 04/06/25 [History Confirmed 04/06/25] albuterol sulfate 90 mcg/actuation aerosol inhaler (Ventolin HFA) 2 inh inhalation Q4-6H PRN shortness of breath or wheezing 04/06/25 [History Confirmed 04/06/25] apixaban 5 mg tablet (Eliquis) 5 mg PO Q12H 04/06/25 [History Confirmed 04/06/25] benazepril 5 mg tablet 5 mg PO DAILY 04/06/25 [History Confirmed 04/06/25] blood sugar diagnostic (FreeStyle Lite Strips) 04/06/25 [History Confirmed 04/06/25] blood-glucose meter (FreeStyle Lite Meter kit) 04/06/25 [History Confirmed 04/06/25] hvpflzfuslkilfdnanpoir-lmkqnxqo-rzpbhddi 80 0.5 %-1 %-0.5 % eye drops (Refresh Optive Advanced) 1 drp EACH EYE DAILY PRN dry eye(s) 04/06/25 [History Confirmed 04/06/25] cholecalciferol (vitamin D3) 50 mcg (2,000 unit) capsule 2,000 unit PO BID 04/06/25 [History Confirmed 04/06/25] clindamycin HCl 300 mg capsule 600 mg PO PRN 04/06/25 [History Confirmed 04/06/25] cyanocobalamin (vitamin B-12) 1,000 mcg/mL injection solution 1,000 mcg subcut MONTHLY 04/06/25 [History Confirmed 04/06/25] cyclosporine 0.05 % eye drops in a dropperette (Restasis) 1 drp EACH EYE BID 04/06/25 [History Confirmed 04/06/25] ferrous sulfate 325 mg (65 mg iron) tablet (iron) 325 mg PO DAILY 04/06/25 [History Confirmed 04/06/25] fluticasone fur. 200 mcg-umeclid 62.5 mcg-vilant 25 mcg inhalat.powder (Trelegy Ellipta) 1 inh inhalation DAILY 04/06/25 [History Confirmed 04/06/25] insulin NPH isoph U-100 human 100 unit/mL subcutaneous suspension (Humulin N NPH U-100 Insulin (isophane susp)) 30 unit subcut QAM 04/06/25 [History Confirmed 04/07/25] insulin regular human 100 unit/mL injection solution (Humulin R Regular U-100 Insulin) 14 unit subcut TID 04/06/25 [History Confirmed 04/06/25] insulin syringe-needle U-100 0.5 mL 31 gauge x 5/16 (Ultra-Fine Insulin Syringe) 04/06/25 [History Confirmed 04/06/25] metoprolol succinate 25 mg tablet,extended release 24 hr 25 mg PO DAILY 04/06/25 [History Confirmed 04/06/25] multivitamin (Daily Multi-Vitamin tablet) 1 tablet PO DAILY 04/06/25 [History Confirmed 04/06/25] tamsulosin 0.4 mg capsule 0.4 mg PO DAILY 04/06/25 [History Confirmed 04/06/25] vit C 250 mg-vit E 90 mg-zinc 40 mg-copper 1 gh-xkkqjp-amgcoz capsule (PreserVision AREDS-2) 1 tablet PO BID 04/06/25 [History Confirmed 04/06/25] white petrolatum-mineral oil 94 %-3 % eye ointment (Systane Nighttime) 1 applic EACH EYE HS 04/07/25 [History Confirmed 04/07/25] Active Medications Albuterol (Albuterol Sulfate Neb 2.5 Mg/3 Ml Inh) 2.5 mg INHALATION Q6HRT PRN PRN Reason: Shortness Of Breath Or Wheezing Artificial Tears (Artificial Tears Ophth Soln 15 Ml Bottle) 1 drop EACH EYE DAILY PRN PRN Reason: Dry Eye(s) Aspirin (Aspirin 81 Mg Enteric Tablet) 81 mg PO DAILY [facility] Last Admin: 04/08/25 08:40 Dose: 81 mg Clopidogrel Bisulfate (Clopidogrel Bisulfate 75 Mg Tablet) 75 mg PO QAM [facility] Last Admin: 04/08/25 11:46 Dose: 75 mg Cyclosporine (Cyclosporine 0.4 Ml Ophth Solution) 1 drop EACH EYE Q12HR [facility] Last Admin: 04/08/25 08:41 Dose: 1 drop Dextrose (Dextrose 50% 25 Gm/50 Ml Syringe) 12.5 gm IV PUSH PRN PRN; Protocol PRN Reason: Hypoglycemia Ferrous Sulfate (Ferrous Sulfate 325 Mg Tablet) 325 mg PO DAILY [facility] Last Admin: 04/08/25 08:39 Dose: 325 mg Fluticasone/Umeclidinium/Vilanterol (Fluticasone/Umeclidin/Vilanter 200-62.5-25 Mcg Ellipta) 1 puff INHALATION DAILY [facility] Last Admin: 04/08/25 08:34 Dose: 1 puff Glucagon (Glucagon For Inj 1 Mg Vial) 1 mg IM PRN PRN; Protocol PRN Reason: Hypoglycemia Glucose (Glucose Oral Gel 15 Gm Of Glucse In 37.5 Gm Tube) 15 gm PO PRN PRN; Protocol PRN Reason: Hypoglycemia Heparin Sodium (Porcine) (Heparin Sodium 5,000 Units/Ml Vial) 4,000 units IV PUSH PRN PRN PRN Reason: aPTT less than 55 seconds Heparin Sodium (Porcine) (Heparin Sodium 5,000 Units/Ml Vial) 3,000 units IV PUSH PRN PRN PRN Reason: aPTT 55 - 70 seconds Heparin Sodium/Dextrose (Heparin Sodium/D5w 100 Units/Ml) 25,000 units in 250 mls @ 9 mls/hr IV CONT .Q24H [facility]; Protocol Last Admin: 04/08/25 00:06 Dose: 900 units/hr, 9 mls/hr Dextrose (Dextrose 5% 1,000 Ml) 1,000 mls @ 100 mls/hr IVPB PRN PRN; Protocol PRN Reason: Hypoglycemia Insulin Aspart (Insulin Aspart (*Bkc) 100 Units/Ml) 4 - 8 units SUB-Q TIDWM [facility]; Protocol Last Admin: 04/08/25 12:11 Dose: 5 units Insulin Glargine (Insulin Glargine (*Bkc) 100 Units/Ml) 24 units SUB-Q HS [facility] Last Admin: 04/07/25 21:15 Dose: 24 units Lisinopril (Lisinopril 5 Mg Tablet) 5 mg PO DAILY [facility] Last Admin: 04/08/25 08:41 Dose: 5 mg Metoprolol Succinate (Metoprolol Succinate Ext Rel 25 Mg Tabcr) 25 mg PO DAILY [facility] Last Admin: 04/08/25 08:40 Dose: 25 mg Multivitamins Therapeutic (Multivitamins Therapeutic Tab (*Bkc)) 1 tablet PO DAILY@0800 [facility] Last Admin: 04/08/25 08:41 Dose: 1 tablet Nitroglycerin (Nitroglycerin Sl 0.4 Mg Tablet) 0.4 mg SUBLINGUAL Q5MIN PRN PRN Reason: Chest Pain Ondansetron HCl (Ondansetron Inj 4 Mg/2 Ml Vial) 4 mg IV PUSH Q4H PRN PRN Reason: Nausea Perflutren Lipid Microsphere (Perflutren Lipid Microspheres 1.5 Ml Vial Diluted To 10 Ml Total Volume) 0 ml IV PUSH ONCE PRN; Protocol PRN Reason: adequate visualization Stop: 04/10/25 09:53 Rosuvastatin Calcium (Rosuvastatin 20 Mg Tablet) 40 mg PO DAILY [facility] Last Admin: 04/08/25 08:39 Dose: 40 mg Tamsulosin HCl (Tamsulosin Hcl 0.4 Mg Capsule) 0.4 mg PO DAILY [facility] Last Admin: 04/08/25 08:39 Dose: 0.4 mg Vitamin D (Cholecalciferol (Vitamin D3) 25 Mcg (1,000 Units) Tablet) 50 mcg PO BID [facility] Last Admin: 04/08/25 08:39 Dose: 50 mcg Transfer Discharge Sum: Hosp Hospital Course Hospital course: Per HPI: Fabio Kang is a 74 year old male with a PMH of DMII, DORENE wtih cpap, Alz dementia, COPD, HTN, CABG x4 presented to the ED on 04/06/25 with complaints of sudden crushing chest pain located over the middle of his chest and radiating to his left shoulder. Family was instructed to give 4 baby aspirin but patient immediately vomited after administration. Symptoms had resolved before arrival to the ED. patient is A&O x2 on my assessment. Family mentions the patient complained of shortness of breath as well. Patient does have history of CABG x4. ED course: Labs reviewed elevated glucose, alk-phos 130, initial troponin 0.012 and 3 hour troponin 0.084. EKG with no evidence ischemic changes Chest x-ray with no acute cardiopulmonary abnormality Course: Echocardiogram on 04/07/25: 1. Complete two-dimensional, color flow and Doppler transthoracic echocardiogram is performed. 2. The left ventricle is normal in size and systolic function. The left ventricular ejection fraction is visually estimated to be 60-65%. 3. The right ventricle is normal in size and systolic function. 4. The aortic valve is trileaflet and calcified. There is likely mild aortic stenosis. There is no aortic regurgitation. Cardiac catheterization was performed on 04/08/25 due to Chest pain and elevated troponins. Here are the following findings during the catheterization: 1- left coronary artery is a large artery. Left main ostial 10% 2- left anterior descending artery is a large artery that runs and wraps around the apex. At the junction of the proximal to mid segment 90%. 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 Hazy. 5- LVEDP was 20 mm Hg and no gradient across aortic valve. 6- opening arterial pressure was 118/72 and closing pressure was 140/61 7- right femoral artery angiogram shows no significant disease in the right common femoral artery. Conclusion: -hazy proximal and mid ramus intermedius. Status post balloon angioplasty. The lesion is calcified. Given these findings, the patient will need to be transferred to a tertiary facility for repair. Throughout hospitalization the patient has been stable, denies any chest pain, shortness of breath, n/v, or headaches/dizziness. Pt is stable for transfer at this time. Cardiology initiated the transfer to [facility] - he was eventually accepted and transferred to [facility]. Patient Condition: Stable Time Spent with Patient Time attestation: Total time spent providing and/or coordinating transfer services: 23 Exam Narrative: GENERAL: non-toxic appearing, in no acute distress. HEAD: Normocephalic, atraumatic. EYES: PERRLA. Conjunctivae clear. NOSE: Normal no drainage. THROAT: Pharynx clear, no exudate. NECK: Trachea midline. No adenopathy, no masses. RESPIRATORY: Airway patent, respirations nonlabored. CTA. CARDIOVASCULAR: Regular rate and rhythm. BREASTS: Defer GASTROINTESTINAL: Abdomen is soft and nontender. No organomegaly. Bowel sounds normal in all quadrants. Obese GENITOURINARY: Defer MUSCULOSKELETAL: Moves all extremities. No gross deformities. Moves all extremities well. No calf tenderness. SKIN: Warm, dry, normal color. NEURO: A&O X2 but able to correct answers if given time or reminders. Speech clear PSYCHIATRIC: Normal interaction DS: Data Data Completed and Pending Labs on day of discharge: Labs from last 24 hours 04/08/25 04/08/25 04/07/25 12:05 03:30 20:42 Sodium 133 L Potassium 4.5 Chloride 100 Carbon Dioxide 28 Anion Gap 5 BUN 23 H Creatinine 0.75 Estim Creat Clear Calc 78 Estimated GFR > 60 Glucose 322 H POC Capillary Glucose 266 H 290 H Calcium 8.7 04/07/25 16:28 Sodium Potassium Chloride Carbon Dioxide Anion Gap BUN Creatinine Estim Creat Clear Calc Estimated GFR Glucose POC Capillary Glucose 316 H Calcium
[2025-04-08] MEDS: INSULIN HUMAN NPH (*BKC) 100 UNITS/ML 11 UNITS SUB-Q (17:22)
--- NOTE | 2025-04-09 07:26 | P.CDI_ITS ---
CDI Query Clarification Request Documentation notes chest pain with elevated troponin and concern for NSTEMI. For clarification of the record, can the chest pain be further specified as: * NSTEMI * Angina/unstable angina * Non-cardiac chest pain * Coronary artery disease with calcified lesion and balloon angioplasty * Other, please specify * Unable to determine Discharge summary: Discharge Diagnosis (1) Chest pain: Qualifiers: Chest pain type: unspecified Qualified Code(s): R07.9 - Chest pain, unspecified Code(s): R07.9 - Chest pain, unspecified Status: Acute Assessment and Plan: Complains of sudden crushing chest pain located over the middle of his chest and radiating to his left shoulder. History of CABG x4. Takes Eliquis and aspirin 81 mg. EKG with no evidence of ischemic event. Initial troponin 0.012 and increased to 0.84. Await 6hr trop * concern for NSTEMI * heparin drip per protocol started * continue beta-scott * continue statin * sublingual nitro p.r.n. * lipid panel ordered * Heart cath tomorrow - NPO at midnight * Echocardiogram 04/07 1. Complete two-dimensional, color flow and Doppler transthoracic echocardiogram is performed. 2. The left ventricle is normal in size and systolic function. The left ventricular ejection fraction is visually estimated to be 60-65%. 3. The right ventricle is normal in size and systolic function. 4. The aortic valve is trileaflet and calcified. There is likely mild aortic stenosis. There is no aortic regurgitation. * Heart catheterization performed on 04/08 * hazy proximal and mid ramus intermedius. Status post balloon angioplasty. The lesion is calcified. * Requires transfer to tertiary center for calcified lesion * Accepted bed at [facility] Cardiology documented: 1) Chest pain: Qualifiers: Chest pain type: unspecified Qualified Code(s): R07.9 - Chest pain, uns pecified Code(s): R07.9 - Chest pain, unspecified Status: Acute Assessment and Plan: Somewhat atypical sounding chest pain that occurred during exertion but has been constant although less intense. Initial troponin 0.012 and has trended up to 0.244. He has been placed on a heparin drip which should be continued. SL nitro 0.4mg prn for chest pain. Trend troponin. Given his history, presentation, and troponin elevation, recommend ischemic evaluation with coronary angiogram tomorrow (last dose of eliquis 10/12 a.m.). NPO at midnight. Will check an echo in the meantime. If his repeat troponin is significantly increased from previous value or he develops worsening chest pain can consider more urgent cath. Will obtain records from his established electrical service technician to get more information regarding his graft anatomy prior to angiogram tomorrow. (2) Elevated troponin: Code(s): R79.89 - Other specified abnormal findings of blood chemistry Status: Acute Assessment and Plan: Troponin is elevated at 0.084, 0.244 (initially 0.012). Repeat troponin now to observe trend. Will consider this NSTEMI and plan for coronary angiogram tomorrow. Cardiac cath: Conclusion:: -hazy proximal and mid ramus intermedius. Status post balloon angioplasty. The lesion is calcified. Assessment and Plan Assessment and plan (1) Elevated troponin: Code(s): R79.89 - Other specified abnormal findings of blood chemistry Status: Acute Plan Will plan to discuss with patient's electrical service technician Dr. flanagan DC'd patient for intervention on the ramus intermedius using shockwave/rotablator. -in the meanwhile will add Plavix to patient's anticoagulation regimen along with the Eliquis. <Jaquelin Dee RN - Last Filed: 04/09/25 07:35> Clarified Diagnosis Clarified Diagnosis: Chest pain - Coronary artery disease with calcified lesion and balloon angioplasty <Alfredito Fuentes PA-C - Last Filed: 04/09/25 07:49>
== END 2025-04-08 21:10 | disposition short-term general hospital (02) | DRG 251 ==
LOC: ANHED 18:23 → ANHIMU 19:19
PROVIDERS: Internal Medicine; Internal Medicine Cardiovascular Disease; Nurse Practitioner; Nurse Practitioner Adult Health; Radiology Diagnostic Radiology; Admitting Provider Family Medicine; Emergency Provider Emergency Medicine; Visit Provider Physician Assistant
PROC: 4A023N7 Measurement of Cardiac Sampling and Pressure, Left Heart, Percutaneous Approach (ICD-10-PCS; CPT 93459; principal; 2025-04-08 08:40)
PROC: 02703ZZ Dilation of Coronary Artery, One Artery, Percutaneous Approach (ICD-10-PCS; CPT 92920; 2025-04-08 08:40)
DX: I25.10 Atherosclerotic heart disease of native coronary artery without angina pectoris (principal); I25.84 Coronary atherosclerosis due to calcified coronary lesion; M54.89 Other dorsalgia; I10 Essential (primary) hypertension; G47.33 Obstructive sleep apnea (adult) (pediatric); E11.9 Type 2 diabetes mellitus without complications; J44.9 Chronic obstructive pulmonary disease, unspecified; G30.9 Alzheimer's disease, unspecified; F02.80 Dementia in other diseases classified elsewhere, unspecified severity, without behavioral disturbance, psychotic disturbance, mood disturbance, and anxiety; R79.89 Other specified abnormal findings of blood chemistry; Z99.89 Dependence on other enabling machines and devices; Z79.4 Long term (current) use of insulin; Z79.82 Long term (current) use of aspirin; Z79.01 Long term (current) use of anticoagulants; Z95.1 Presence of aortocoronary bypass graft
CPT/HCPCS: 36415; 71046; 80048; 80053; 80061; 82948; 83690; 84484; 85025; 85610; 85730; 92920; 93005; 93306; 93459; 94640; 99285; A9270; C1725; C1760; C1769; C1887; C1894; G0269; G0378; J0583; J1644; J1815; J2003; J2250; J2305; J3010; J7040